=== PATIENT | female | born 1990 | race Hispanic/Latino ===

== ENCOUNTER 2016-09-17 16:53 | Emergency (ER) | payer OTHER ==
[2016-09-17 17:16] VITALS: BP 137/85
[2016-09-17 20:23] LABS: Basophils % (Auto) 0.4 % (0.0-1.8); Eosinophils % (Auto) 1.5 % (0.0-4.3); Hematocrit 40.8 % (30.3-42.9); Hemoglobin 14.2 gm/dl (10.1-14.3); Mean Corpuscular HGB Conc 35 % (30-34); Mean Corpuscular Hemoglobin 29 pg (28-32); Mean Corpuscular Volume 83 fl (79-97); Platelet Count 234 K/mm3 (140-440); Red Blood Count 4.89 M/mm3 (3.65-5.03); Red Cell Distribution Width 13.5 % (13.2-15.2); White Blood Count 7.3 K/mm3 (4.5-11.0)
[2016-09-17 20:44] LABS: Alanine Aminotransferase 31 units/L (7-56); Albumin 4.8 g/dL (3.9-5); Albumin/Globulin Ratio 1.5 %; Alkaline Phosphatase 55 units/L (35-129); Anion Gap 20 mmol/L; BUN/Creatinine Ratio 21.66; Bilirubin,Total 0.6 mg/dL (0.1-1.2); Blood Urea Nitrogen 13 mg/dL (7-17); Calcium 9.8 mg/dL (8.4-10.2); Carbon Dioxide 23 mmol/L (22-30); Chloride 101.5 mmol/L (98-107); Glucose 85 mg/dL (65-100); Lipase 33 units/L (13-60); Potassium 3.8 mmol/L (3.6-5.0); Sodium 141 mmol/L (137-145)
--- NOTE | 2016-09-17 20:49 | Emergency Department Report ---
<CHRIS SWENSON - Last Filed: 09/17/16 20:45> ED N/V/D HPI - General Chief complaint: Nausea/Vomiting/Diarrhea Stated complaint: BACK PAIN/VOMITING/DIARRHEA/COUGH/SWEATS Time Seen by Provider: 09/17/16 19:34 Source: patient Mode of arrival: Ambulatory Limitations: No Limitations - History of Present Illness Initial comments: complaining nausea vomiting and diarrhea for the past 48 hours. Patient denies dysuria, vaginal discharge, or flank pain. Patient also states that about a week ago she developed a cough with productive sputum. She feels this is unrelated to the nausea vomiting diarrhea and abdominal cramping she's been having for the past 24 hours. Patient denies any sick contacts. MD complaint: nausea, vomiting, diarrhea, abdominal pain Associated Abdominal Pain: Yes (crampy) Location: diffuse Quality: cramping Consistency: intermittent - Related Data Previous Rx's Medication Instructions Recorded Last Taken Type Cephalexin [Keflex] 500 mg PO Q12HR #20 cap 01/14/16 Unknown Rx Ibuprofen [Motrin 800 MG tab] 800 mg PO Q8HR PRN #30 tablet 01/14/16 Unknown Rx Sulfamethoxazole/Trimethoprim 1 each PO BID #20 tablet 01/14/16 Unknown Rx [Bactrim DS TAB] Promethazine [Phenergan TAB] 25 mg PO Q6HR PRN #20 tab 09/17/16 Unknown Rx Allergies Allergy/AdvReac Type Severity Reaction Status Date / Time seafood Allergy Swelling Uncoded 01/14/16 12:01 ED Review of Systems ROS: Stated complaint: BACK PAIN/VOMITING/DIARRHEA/COUGH/SWEATS Other details as noted in HPI Constitutional: chills, fever, malaise Eyes: denies: eye pain, eye discharge, vision change ENT: denies: ear pain, throat pain Respiratory: cough. denies: shortness of breath, SOB with exertion Cardiovascular: denies: chest pain, palpitations, dyspnea on exertion Gastrointestinal: abdominal pain, nausea, vomiting, diarrhea. denies: constipation Musculoskeletal: myalgia Skin: denies: rash, lesions Neurological: headache ED Past Medical Hx - Past Medical History Previous Medical History?: No Hx Hypertension: No Hx Congestive Heart Failure: No Hx Diabetes: No Hx Deep Vein Thrombosis: No Hx Renal Disease: No Hx Sickle Cell Disease: No Hx Seizures: No Hx Asthma: No Hx COPD: No Hx HIV: No - Surgical History Past Surgical History?: Yes Additional Surgical History: pelvis 07/27 - Social History Smoking Status: Never Smoker Substance Use Type: None - Medications Home Medications: Home Medications Medication Instructions Recorded Confirmed Last Taken Type Cephalexin [Keflex] 500 mg PO Q12HR #20 cap 01/14/16 Unknown Rx Ibuprofen [Motrin 800 MG tab] 800 mg PO Q8HR PRN #30 tablet 01/14/16 Unknown Rx Sulfamethoxazole/Trimethoprim 1 each PO BID #20 tablet 01/14/16 Unknown Rx [Bactrim DS TAB] Promethazine [Phenergan TAB] 25 mg PO Q6HR PRN #20 tab 09/17/16 Unknown Rx ED Physical Exam - General Limitations: No Limitations General appearance: alert, in no apparent distress - Head Head exam: Present: atraumatic, normocephalic - Eye Eye exam: Present: PERRL, EOMI - ENT ENT exam: Present: mucous membranes moist - Neck Neck exam: Present: normal inspection - Respiratory Respiratory exam: Present: normal lung sounds bilaterally. Absent: respiratory distress, wheezes, rales, rhonchi, stridor - Cardiovascular Cardiovascular Exam: Present: regular rate - GI/Abdominal GI/Abdominal exam: Present: soft, tenderness (mild diffuse), normal bowel sounds. Absent: distended, guarding, rebound, rigid, hyperactive bowel sounds, hypoactive bowel sounds, organomegaly, mass - Neurological Exam Neurological exam: Present: alert, oriented X3 - Skin Skin exam: Present: warm, dry, intact, normal color, rash. Absent: cyanosis, diaphoretic, pallor ED Course Vital Signs 09/17/16 17:14 Temperature 97.9 F Pulse Rate 84 Respiratory 16 Rate Blood Pressure 137/85 O2 Sat by Pulse 99 Oximetry - Reevaluation(s) Reevaluation #1: 09/17/16 20:55 Is resting comfortably at this time. Nontoxic, normotensive normal cardiac area still awaiting labs and imaging patient care being handed off to LOWELL Boone at this time. Prescription for Phenergan already printed and discharge instructions for nausea vomiting diarrhea entered. ED Medical Decision Making - Lab Data Result diagrams: 09/17/16 20:11 09/17/16 20:11 Critical care attestation.: If time is entered above; I have spent that time in minutes in the direct care of this critically ill patient, excluding procedure time. ED Disposition Clinical Impression: Nausea & vomiting, Diarrhea Is pt being admited?: No Does the pt Need Aspirin: No Instructions: Acute Nausea and Vomiting (ED) Prescriptions: Promethazine [Phenergan TAB] 25 mg PO Q6HR PRN #20 tab PRN Reason: Nausea Referrals: PRIMARY CARE, [Primary Care Provider] - 3-5 Days JESSA GODINEZ MD [Staff Physician] - 3-5 Days Forms: Work/School Release Form(ED) <RAHEL MENDEZ - Last Filed: 09/18/16 00:49> ED Medical Decision Making - Lab Data Result diagrams: 09/17/16 20:11 09/17/16 20:11 - Radiology Data Radiology results: image reviewed FINAL REPORT EXAM: XR CHEST 1V AP HISTORY: fever TECHNIQUE: Single frontal view of the chest PRIORS: None FINDINGS: Lungs are clear. Heart size is normal. Normal pulmonary vasculature. No effusion or pneumothorax. IMPRESSION: 1. No acute finding. Transcribed By: RADHA Dictated By: KIARRA MÉNDEZ MD Electronically Authenticated By: KIARRA MÉNDEZ MD Signed Date/Time: 09/18/16131 FINAL REPORT EXAM: XR ABDOMEN 1V AP HISTORY: abd pain TECHNIQUE: 1 view of the abdomen PRIORS: None FINDINGS: Normal bowel gas pattern. No suspicious calcifications. No indirect evidence of free air. No bowel obstruction. Orthopedic screws traverse the left SI joint and left medial acetabulum. IMPRESSION: 1. No acute finding. Transcribed By: RADHA Dictated By: KIARRA MÉNDEZ MD Electronically Authenticated By: KIARRA MÉNDEZ MD Signed Date/Time: 09/18/16 013 - Medical Decision Making Review of x-rays are all within normal limits. Patient felt a little bit better with Zofran and ordered. Patient with discharge and Phenergan by LOWELL Mendoza. Discussed with patient to drink plenty of fluids she's able to take antidiarrhea medication. I'll up with her primary care provider.
[2016-09-17] MEDS ORDERED: ZOFRAN IM ONE (22:17)
[2016-09-17 22:48] LABS: Bilirubin,Urine NEG (Negative); Blood,Urine NEG (Negative); Ketones,Urine TR mg/dL (Negative); Leukocyte Esterase,Urine NEG (Negative); Mucus,Urine 3+ /HPF; Nitrite,Urine NEG (Negative); Protein,Urine <15 mg/dL mg/dL (Negative); Urobilinogen,Urine < 2.0 mg/dL (<2.0)
--- NOTE | 2016-09-18 00:34 | XRay Report ---
FINAL REPORT EXAM: XR ABDOMEN 1V AP HISTORY: abd pain TECHNIQUE: 1 view of the abdomen PRIORS: None FINDINGS: Normal bowel gas pattern. No suspicious calcifications. No indirect evidence of free air. No bowel obstruction. Orthopedic screws traverse the left SI joint and left medial acetabulum. IMPRESSION: 1. No acute finding.
--- NOTE | 2016-09-18 00:35 | XRay Report ---
FINAL REPORT EXAM: XR CHEST 1V AP HISTORY: fever TECHNIQUE: Single frontal view of the chest PRIORS: None FINDINGS: Lungs are clear. Heart size is normal. Normal pulmonary vasculature. No effusion or pneumothorax. IMPRESSION: 1. No acute finding.
== END 2016-09-18 00:55 | disposition home or self-care (01) ==
LOC: ED 16:53
DX: R11.2 Nausea with vomiting, unspecified (principal); R19.7 Diarrhea, unspecified; R10.84 Generalized abdominal pain; Z91.013 Allergy to seafood
CPT/HCPCS: 36415; 71010; 74000; 80053; 81001; 81025; 83690; 85025; 96372; 99284; J2405

== ENCOUNTER 2017-05-15 13:29 | Emergency (ER) | payer MEDICAID, OTHER ==
[2017-05-15 14:34] VITALS: BP 118/71
[2017-05-15 16:11] LABS: Bilirubin,Urine NEG (Negative); Blood,Urine NEG (Negative); Ketones,Urine TR mg/dL (Negative); Leukocyte Esterase,Urine NEG (Negative); Mucus,Urine 2+ /HPF; Nitrite,Urine NEG (Negative); Protein,Urine <15 mg/dL mg/dL (Negative); Urobilinogen,Urine < 2.0 mg/dL (<2.0)
== END 2017-05-15 21:50 | disposition left against medical advice (07) ==
LOC: ED 13:29
DX: O26.891 Other specified pregnancy related conditions, first trimester (principal); R10.2 Pelvic and perineal pain; Z53.21 Procedure and treatment not carried out due to patient leaving prior to being seen by health care provider
CPT/HCPCS: 36415; 81001; 84702

== ENCOUNTER 2017-08-22 18:20 | Outpatient (CLI) | payer MEDICAID ==
[2017-08-22 19:08] VITALS: BP 125/57
[2017-08-22] MEDS ORDERED: LACTATED RINGERS 500 ML IV ONE (20:30)
--- NOTE | 2017-08-22 22:37 | Ultrasound Report ---
FINAL REPORT PROCEDURE: US OB > = 14 WEEKS FETUS TECHNIQUE: Real-time transabdominal sonography of the uterus, placenta, amniotic fluid, adnexa, and fetus was performed with image documentation. Detailed anatomic examination was performed. Measurements were obtained to determine age/size. M-mode Doppler was used to document heartbeat. CPT 56034 HISTORY: TACHYCARDIA COMPARISON: No prior studies are available for comparison. FINDINGS: There is a single living intrauterine gestation currently visualized in the transverse presentation head on the maternal left with a heart rate of 153 beats per minute. Subjectively the amount of amniotic fluid appears normal. Placenta is located posterior and is grade 0. No evidence of placenta abruption. Cervix length 4.6 centimeter. No evidence of placenta previa. Three-vessel cord visualized and confirmed with visualization of 2 arcuate arteries at the level of the urinary bladder. spine is unremarkable. Urinary bladder and stomach are visualized. Posterior fossa the brain, thalamus lateral ventricles and cavum septum pellucidum visualized. Kidneys are unremarkable. Facial profile and facial features were not demonstrated. Extremities were not studied in detail. MEASUREMENTS: BPD: 5.5 centimeter equaled 22 week 5 days HC: 20.7 centimeter equals 22 weeks 6 days AC: 18.6 centimeter equaled 23 week 3 days FL: 3.9 centimeter equaled 22 week 3 days Mean Gestational Age (composite criteria): 22 weeks 6 days Estimated Weight: 551 grams +/-80 2 grams equals 1 pound 3 ounces +/-3 ounces.. Interval growth: No prior studies.. Estimated date confinement by today's study 12/20/2017 +/-2 weeks. IMPRESSION: Single living intrauterine gestation visualized in the transverse presentation head on the maternal left. heart rate 153 beats per minute. Amount of amniotic fluid appears normal. No evidence of placenta abruption. No abnormalities are demonstrated. Facial features and extremities were not studied in detail. Average sonographic age by today's study is 22 weeks 6 days[address] This [address] the EDC 12/30/2017 +/-2 weeks per
== END 2017-08-22 21:47 | disposition home or self-care (01) ==
LOC: TRG 18:20
PROVIDERS: ATTEND Obstetrics & Gynecology
DX: O32.2XX0 Maternal care for transverse and oblique lie, not applicable or unspecified (principal); O47.02 False labor before 37 completed weeks of gestation, second trimester; Z3A.22 22 weeks gestation of pregnancy
CPT/HCPCS: 76805

== ENCOUNTER 2017-09-13 16:04 | Outpatient (CLI) | payer MEDICAID ==
[2017-09-13 17:27] LABS: Bacteria,Urine 1+ /HPF (Negative); Bilirubin,Urine NEG (Negative); Blood,Urine NEG (Negative); Color,Urine Yellow (Yellow); Mucus,Urine FEW /HPF; Nitrite,Urine NEG (Negative); Protein,Urine <15 mg/dL mg/dL (Negative); Urobilinogen,Urine < 2.0 mg/dL (<2.0)
[2017-09-13] MEDS ORDERED: LACTATED RINGERS 1,000 ML IV SCH (18:00)
--- NOTE | 2017-09-13 19:23 | Ultrasound Report ---
FINAL REPORT EXAM: US OB LIMITED HISTORY: r/o abruption . LMP 03/16/2017 with estimated age 25 weeks 6 days and EDC 12/21/2017 TECHNIQUE: Ultrasound of the pelvis using transabdominal imaging PRIORS: None. FINDINGS: Uterus: Uterus is enlarged in size and normal and homogeneous in echogenicity without focal fibroid formation. There is a single early viable intrauterine gestation noted. Intrauterine gestation: There is a single intrauterine viable gestation. heart rate is monitored at 152 BPM using M-mode doppler. The placenta is located along the posterior left side of the uterus and is grade 1. There is no evidence for placenta abruption. The fetus is breech in position. Other: There is no evidence for solid adnexal mass is seen. There is no free fluid in the cul-de-sac. IMPRESSION: Single intrauterine viable with no evidence for placental abruption. Fetus is breech in position.
== END 2017-09-13 19:25 | disposition home or self-care (01) ==
LOC: TRG 16:04
PROVIDERS: ATTEND Obstetrics & Gynecology
DX: O32.1XX0 Maternal care for breech presentation, not applicable or unspecified (principal); O47.03 False labor before 37 completed weeks of gestation, third trimester; Z3A.29 29 weeks gestation of pregnancy
CPT/HCPCS: 59025; 76815; 81001; J7120

== ENCOUNTER 2017-09-28 11:25 | Inpatient (IN) | payer MEDICAID ==
--- NOTE | 2017-09-28 12:35 | History and Physical Report ---
History of Present Illness Date of examination: 09/28/17 Chief complaint: Fever and chills History of present illness: 27-year-old at 28 weeks (LUIS MANUEL 12/21/17) presents with flulike symptoms, she is a [facility] patient. Essential history is patient with onset of headache last Tuesday for which she took Tylenol. Yesterday however, she started to have fever and chills associated with flank pain and some mild bilateral inguinal pain. No cough, no dysuria or frequency, no diarrhea symptoms, no vaginal discharge or loss of fluid. She does report that her children have been sick for the past week. In triage, her temp is within normal alternatives her skin feels clammy. She does have tachycardia and she also has tachycardia. Patient gives and oral history of tachycardia, has not had any workup. She did have a growth scan on 08/22/2017 here in-hospital Impression is single living intrauterine gestation visualized in the transverse position. heart rate 153. Amount of amniotic fluid appears normal. No evidence of placental abruption. No abnormalities are demonstrated. Facial features and extremities are not studied in detail. Average sonographic age is 22 weeks 6 days [address] her EDC at 12/30/2017 Note the patient gives an oral history of receiving the flu shot this season last year. 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 denies: Lives alone, lives with family, smoking, alcohol abuse, IV drug use - Obstetrical History Expected Date of Delivery: 12/21/17 Actual Gestation: 28 Week(s) 0 Day(s) : 4 Para: 2 Medications and Allergies Allergies Allergy/AdvReac Type Severity Reaction Status Date / Time seafood Allergy Swelling Uncoded 01/14/16 12:01 Home Medications Medication Instructions Recorded Confirmed Last Taken Type Cephalexin [Keflex] 500 mg PO Q12HR #20 cap 01/14/16 Unknown Rx Ibuprofen [Motrin 800 MG tab] 800 mg PO Q8HR PRN #30 tablet 01/14/16 Unknown Rx Sulfamethoxazole/Trimethoprim 1 each PO BID #20 tablet 01/14/16 Unknown Rx [Bactrim DS TAB] Promethazine [Phenergan TAB] 25 mg PO Q6HR PRN #20 tab 09/17/16 Unknown Rx Active Meds: Active Medications Lactated Ringer's (Lactated Ringers) 500 mls @ 999 mls/hr IV BOLUS ONE Stop: 09/28/17 12:52 Lactated Ringer's (Lactated Ringers) 1,000 mls @ 125 mls/hr IV DIRECT DEVIN Review of Systems Constitutional: fever, chills, sweats, fatigue, malaise Eyes: no blurred vision, no diplopia, no blind spots Ears, nose, mouth and throat: headache, no sinus pressure, no sinus pain Cardiovascular: no chest pain, no orthopnea, no lightheadedness, no shortness of breath, no dyspnea on exertion, no paroxysmal nocturnal dyspnea, no high blood pressure Respiratory: no cough, no cough with sputum, no shortness of breath, no dyspnea on exertion, no respiratory infections Gastrointestinal: no abdominal pain, no nausea, no vomiting, no diarrhea, no heartburn Genitourinary: no vaginal bleeding, no leakage of fluid, no dysuria, no contractions - Vital Signs Vital signs: Vital Signs Temp Pulse 99.8 F H 124 H 09/28/17 12:05 09/28/17 12:05 Temp Pulse Resp BP Pulse Ox 99.8 F H 110 H 129/73 94 09/28/17 12:05 09/28/17 12:33 09/28/17 12:15 09/28/17 12:33 - Physical Exam Cardiovascular: Other (maternal tachycardia) Lungs: Positive: Clear to auscultation Abdomen: Positive: normal appearance, soft. Negative: distention, tenderness, guarding, rigidity Genitourinary (Female): Positive: normal external genitalia Uterus: Positive: enlarged. Negative: tender Extremities: Positive: normal Results All other labs normal. Assessment and Plan A: 27-year-old at 28 weeks presents with flulike symptoms -Cat 2 tracing with tachycardia Issues -Oral hx of elevated temp at home -Oral hx of tachycardia x ~ 1 month -s/p Growth on 08/22/17 (LUIS MANUEL 12/30/17) P: -Admit with contact precautions -CBC, Urine culture and UDS -BMP, TSH -Start Tamiflu course -Growth and BPP -MFM consult for oral hx of tachycardia - Patient Problems (1) 28 weeks gestation of Current Visit: Yes Status: Acute (2) Flu-like symptoms Current Visit: Yes Status: Acute (3) tachycardia Current Visit: Yes Status: Acute
[2017-09-28] MEDS ORDERED: LACTATED RINGERS 1,000 ML ONE (12:42)
[2017-09-28] MEDS ORDERED: LACTATED RINGERS 500 ML IV ONE (12:42)
[2017-09-28] MEDS: LACTATED RINGERS 1,000 ML IV SCH ×2 (12:50→21:06)
[2017-09-28] MEDS ORDERED: ZOFRAN IV PRN (12:54)
[2017-09-28] MEDS ORDERED: BENADRYL PO PRN (12:54)
[2017-09-28] MEDS ORDERED: COLACE PO PRN (12:54)
[2017-09-28 13:24] LABS: Amphetamine Screen,Urine PRESUMPTIVE NEGATIVE; Benzodiazepines Screen,Urine PRESUMPTIVE NEGATIVE; Cannabinoid Screen,Urine PRESUMPTIVE NEGATIVE; Cocaine Screen,Urine PRESUMPTIVE NEGATIVE; Methadone Screen,Urine PRESUMPTIVE NEGATIVE; Opiate Screen,Urine PRESUMPTIVE NEGATIVE
[2017-09-28 13:30] LABS: Basophils % (Auto) 0.4 % (0.0-1.8); Eosinophils % (Auto) 0.2 % (0.0-4.3); Hematocrit 30.2 % (30.3-42.9); Hemoglobin 10.4 gm/dl (10.1-14.3); Lymphocytes # (Auto) 0.7 K/mm3 (1.2-5.4); Lymphocytes % (Auto) 16.3 % (13.4-35.0); Mean Corpuscular HGB Conc 34 % (30-34); Mean Corpuscular Hemoglobin 29 pg (28-32); Mean Corpuscular Volume 84 fl (79-97); Monocytes # (Auto) 0.3 K/mm3 (0.0-0.8); Monocytes % (Auto) 6.8 % (0.0-7.3); Platelet Count 167 K/mm3 (140-440); Red Blood Count 3.58 M/mm3 (3.65-5.03); Red Cell Distribution Width 13.9 % (13.2-15.2)
[2017-09-28 14:04] LABS: Alanine Aminotransferase 52 units/L (7-56); Albumin 3.4 g/dL (3.9-5); BUN/Creatinine Ratio 17; Blood Urea Nitrogen 5 mg/dL (7-17); Calcium 8.4 mg/dL (8.4-10.2); Hemolysis Index 59
--- NOTE | 2017-09-28 14:37 | Ultrasound Report ---
BIOPHYSICAL PROFILE: INDICATION: well being, flulike symptoms, flank pain. COMPARISON: None similar. TECHNIQUE: Transabdominal ultrasound with Doppler interrogation. 2 - breathing movements 2 - movements 2 - posture and tone 2 - Qualitative amniotic fluid volume 8 - TOTAL SCORE OF POSSIBLE 8 Heart Rate (bpm) 168 CONCLUSION: Findings, as above.
--- NOTE | 2017-09-28 14:54 | Ultrasound Report ---
OB ULTRASOUND GREATER THAN 14 WEEKS INDICATION: Evaluate growth and anatomy. Flank pain, flulike symptoms. COMPARISON: 09/13/2017 TECHNIQUE: Transabdominal grayscale ultrasound with Doppler interrogation. Gestation: [place] Position: Breech Amniotic Fluid: WNL (7-24 cm) CHRISTIAN = 23.5 cm Placenta: Anterior, left lateral Placental Grade: I Heart Rate: 168 BPM BPD: 7.06 cm = 28 w 2 d HC: 26.01 cm = 28 w 2 d AC: 24.49 cm = 28 w 5 d FL: 5.27 cm = 28 w 0 d HC/AC Ratio: 1.06 Cephalic Index: 84.7 Estimated Weight: 1227 grams Clinical age = 28 w 0 d EDC: 12/21/2017 US Gest. Age = 28 w 2 d EDC: 12/19/2017 CONCLUSION: Single, viable intrauterine gestation with ultrasound estimated age of 28 weeks and 2 days and EDC of 12/19/2017, currently in breech lie with details, as above. Thank you for the opportunity to participate in this patient's care.
[2017-09-28] MEDS: TAMIFLU PO SCH ×2 (15:45→21:53)
[2017-09-28] MEDS: TYLENOL PO PRN (16:29)
--- NOTE | 2017-09-28 18:25 | Event Note ---
Date: 09/28/17 Patient still with tachycardia. TSH and WBC are normal, she has not spiked a temp. AST elevated w/ normal ALT. Plan is Acute hepatitis profile and M consultation for tachycardia
[2017-09-28 18:54] LABS: Hepatitis A Antibody IgM Non-Reactive (NonReactive); Hepatitis B Core IgM Non-Reactive (NonReactive); Hepatitis B Surface Antigen Non-Reactive (Negative); Hepatitis C Virus Antibody Non-Reactive (NonReactive)
--- NOTE | 2017-09-29 08:31 | Progress Note ---
Assessment and Plan - Patient Problems (1) 28 weeks gestation of Onset Date: 09/29/17 Current Visit: Yes Status: Acute Plan to address problem: A: IUP @ 28 1/7 weeks Flu-like symptoms - presently on Tamiflu Tachycardia Elevated LFT's P: Continue present management Awaiting APA consultation Repeat LFT's (2) tachycardia Onset Date: 09/29/17 Current Visit: Yes Status: Acute (3) Flu-like symptoms Onset Date: 09/29/17 Current Visit: Yes Status: Acute Subjective - Subjective Date of service: 09/29/17 Principal diagnosis: IUP @ 28 1/7 weeks; Flu-like symptoms Interval history: Pt states she is feeling a little better, denies headaches , blurred vision, epigastric pain, contractions or bleeding. Her head still feels heavy. + FM Patient reports: movement normal, no new complaints, no loss of fluid, no vaginal bleeding, no contractions Objective - Vital Signs Vital Signs: Vital Signs - 12hr 09/28/17 09/28/17 09/28/17 20:34 20:39 20:44 Temperature Pulse Rate 104 H 99 H 98 H Respiratory Rate Blood Pressure Blood Pressure [Left] O2 Sat by Pulse 96 96 95 Oximetry 09/28/17 09/28/17 09/28/17 20:49 20:54 20:55 Temperature Pulse Rate 98 H 92 H 95 H Respiratory Rate Blood Pressure Blood Pressure [Left] O2 Sat by Pulse 96 95 94 Oximetry 09/28/17 09/28/17 09/28/17 20:59 21:03 21:04 Temperature Pulse Rate 97 H 95 H 103 H Respiratory Rate Blood Pressure Blood Pressure [Left] O2 Sat by Pulse 95 94 95 Oximetry 09/28/17 09/28/17 09/28/17 21:09 21:10 21:22 Temperature Pulse Rate 104 H 98 H 93 H Respiratory Rate Blood Pressure Blood Pressure [Left] O2 Sat by Pulse 95 94 97 Oximetry 09/28/17 09/28/17 09/28/17 21:27 21:32 21:37 Temperature Pulse Rate 96 H 94 H 91 H Respiratory Rate Blood Pressure Blood Pressure [Left] O2 Sat by Pulse 97 96 95 Oximetry 09/28/17 09/28/17 09/28/17 21:42 21:47 21:52 Temperature Pulse Rate 88 90 90 Respiratory Rate Blood Pressure Blood Pressure [Left] O2 Sat by Pulse 95 96 96 Oximetry 09/28/17 09/28/17 09/28/17 21:56 21:57 22:02 Temperature Pulse Rate 88 84 90 Respiratory Rate Blood Pressure 130/60 Blood Pressure [Left] O2 Sat by Pulse 94 97 96 Oximetry 09/28/17 09/28/17 09/28/17 22:04 22:07 22:09 Temperature Pulse Rate 90 88 95 H Respiratory Rate Blood Pressure Blood Pressure [Left] O2 Sat by Pulse 94 95 94 Oximetry 09/28/17 09/28/17 09/28/17 22:12 22:17 22:20 Temperature Pulse Rate 88 91 H 93 H Respiratory Rate Blood Pressure Blood Pressure [Left] O2 Sat by Pulse 95 96 94 Oximetry 09/28/17 09/28/17 09/28/17 22:22 22:27 22:32 Temperature Pulse Rate 88 91 H 88 Respiratory Rate Blood Pressure Blood Pressure [Left] O2 Sat by Pulse 95 94 94 Oximetry 09/28/17 09/28/17 09/28/17 22:37 22:38 22:42 Temperature Pulse Rate 88 89 89 Respiratory Rate Blood Pressure Blood Pressure [Left] O2 Sat by Pulse 96 94 95 Oximetry 09/28/17 09/28/17 09/28/17 22:44 22:47 22:52 Temperature Pulse Rate 89 89 90 Respiratory Rate Blood Pressure Blood Pressure [Left] O2 Sat by Pulse 94 94 94 Oximetry 09/28/17 09/28/17 09/28/17 22:57 22:59 23:02 Temperature Pulse Rate 91 H 91 H 91 H Respiratory Rate Blood Pressure Blood Pressure [Left] O2 Sat by Pulse 94 94 94 Oximetry 09/28/17 09/28/17 09/28/17 23:07 23:10 23:12 Temperature Pulse Rate 92 H 91 H 86 Respiratory Rate Blood Pressure Blood Pressure [Left] O2 Sat by Pulse 94 94 94 Oximetry 09/28/17 09/28/17 09/28/17 23:17 23:22 23:25 Temperature Pulse Rate 90 90 88 Respiratory Rate Blood Pressure Blood Pressure [Left] O2 Sat by Pulse 94 93 94 Oximetry 09/28/17 09/28/17 09/28/17 23:27 23:31 23:32 Temperature Pulse Rate 90 90 91 H Respiratory Rate Blood Pressure Blood Pressure [Left] O2 Sat by Pulse 93 94 93 Oximetry 09/28/17 09/28/17 09/28/17 23:37 23:42 23:47 Temperature Pulse Rate 90 92 H 87 Respiratory Rate Blood Pressure Blood Pressure [Left] O2 Sat by Pulse 94 96 95 Oximetry 09/28/17 09/28/17 09/28/17 23:52 23:53 23:57 Temperature Pulse Rate 89 94 H 88 Respiratory Rate Blood Pressure Blood Pressure [Left] O2 Sat by Pulse 96 94 96 Oximetry 09/28/17 09/29/17 09/29/17 23:59 00:02 00:05 Temperature Pulse Rate 88 84 99 H Respiratory Rate Blood Pressure Blood Pressure [Left] O2 Sat by Pulse 94 96 94 Oximetry 09/29/17 09/29/17 09/29/17 00:07 00:12 00:14 Temperature Pulse Rate 89 92 H 68 Respiratory Rate Blood Pressure Blood Pressure [Left] O2 Sat by Pulse 96 95 94 Oximetry 09/29/17 09/29/17 09/29/17 00:17 00:19 00:22 Temperature Pulse Rate 89 89 91 H Respiratory Rate Blood Pressure 96/61 Blood Pressure [Left] O2 Sat by Pulse 95 97 Oximetry 09/29/17 09/29/17 09/29/17 00:26 00:27 00:32 Temperature Pulse Rate 88 91 H 81 Respiratory Rate Blood Pressure Blood Pressure [Left] O2 Sat by Pulse 93 96 95 Oximetry 09/29/17 09/29/17 09/29/17 00:37 00:42 00:43 Temperature 98.8 F Pulse Rate 81 82 89 Respiratory 18 Rate Blood Pressure Blood Pressure 96/61 [Left] O2 Sat by Pulse 96 95 96 Oximetry 09/29/17 09/29/17 09/29/17 00:47 00:52 00:57 Temperature Pulse Rate 85 86 86 Respiratory Rate Blood Pressure Blood Pressure [Left] O2 Sat by Pulse 96 96 96 Oximetry 09/29/17 09/29/17 09/29/17 01:02 01:07 01:12 Temperature Pulse Rate 86 88 87 Respiratory Rate Blood Pressure Blood Pressure [Left] O2 Sat by Pulse 96 97 96 Oximetry 09/29/17 09/29/17 09/29/17 01:17 01:22 01:27 Temperature Pulse Rate 90 86 88 Respiratory Rate Blood Pressure Blood Pressure [Left] O2 Sat by Pulse 97 97 97 Oximetry 09/29/17 09/29/17 09/29/17 01:32 01:37 01:42 Temperature Pulse Rate 90 93 H 91 H Respiratory Rate Blood Pressure Blood Pressure [Left] O2 Sat by Pulse 94 94 94 Oximetry 09/29/17 09/29/17 09/29/17 01:43 01:47 01:50 Temperature Pulse Rate 92 H 94 H 94 H Respiratory Rate Blood Pressure Blood Pressure [Left] O2 Sat by Pulse 94 94 94 Oximetry 09/29/17 09/29/17 09/29/17 01:52 01:55 01:57 Temperature Pulse Rate 91 H 91 H 92 H Respiratory Rate Blood Pressure Blood Pressure [Left] O2 Sat by Pulse 94 94 94 Oximetry 09/29/17 09/29/17 09/29/17 02:01 02:02 02:07 Temperature Pulse Rate 94 H 93 H 90 Respiratory Rate Blood Pressure Blood Pressure [Left] O2 Sat by Pulse 94 93 91 Oximetry 09/29/17 09/29/17 09/29/17 02:11 02:12 02:16 Temperature Pulse Rate 92 H 90 95 H Respiratory Rate Blood Pressure Blood Pressure [Left] O2 Sat by Pulse 94 93 94 Oximetry 09/29/17 09/29/17 09/29/17 02:17 02:22 02:24 Temperature Pulse Rate 96 H 92 H 91 H Respiratory Rate Blood Pressure Blood Pressure [Left] O2 Sat by Pulse 93 95 94 Oximetry 09/29/17 09/29/17 09/29/17 02:27 02:29 02:32 Temperature Pulse Rate 93 H 95 H 96 H Respiratory Rate Blood Pressure Blood Pressure [Left] O2 Sat by Pulse 94 94 95 Oximetry 09/29/17 09/29/17 09/29/17 02:35 02:37 02:41 Temperature Pulse Rate 96 H 92 H 93 H Respiratory Rate Blood Pressure Blood Pressure [Left] O2 Sat by Pulse 94 95 94 Oximetry 09/29/17 09/29/17 09/29/17 02:42 02:47 02:48 Temperature Pulse Rate 95 H 95 H 96 H Respiratory Rate Blood Pressure Blood Pressure [Left] O2 Sat by Pulse 95 95 94 Oximetry 09/29/17 09/29/17 09/29/17 02:52 02:54 02:57 Temperature Pulse Rate 97 H 95 H 97 H Respiratory Rate Blood Pressure Blood Pressure [Left] O2 Sat by Pulse 95 94 95 Oximetry 09/29/17 09/29/17 09/29/17 03:01 03:02 03:06 Temperature Pulse Rate 94 H 96 H 91 H Respiratory Rate Blood Pressure Blood Pressure [Left] O2 Sat by Pulse 94 94 94 Oximetry 09/29/17 09/29/17 09/29/17 03:07 03:12 03:17 Temperature Pulse Rate 92 H 93 H 94 H Respiratory Rate Blood Pressure Blood Pressure [Left] O2 Sat by Pulse 94 94 94 Oximetry 09/29/17 09/29/17 09/29/17 03:18 03:22 03:24 Temperature Pulse Rate 91 H 96 H 96 H Respiratory Rate Blood Pressure Blood Pressure [Left] O2 Sat by Pulse 94 94 94 Oximetry 09/29/17 09/29/17 09/29/17 03:27 03:32 03:37 Temperature Pulse Rate 101 H 94 H 95 H Respiratory Rate Blood Pressure Blood Pressure [Left] O2 Sat by Pulse 95 97 98 Oximetry 09/29/17 09/29/17 09/29/17 03:42 03:47 03:52 Temperature Pulse Rate 95 H 94 H 94 H Respiratory Rate Blood Pressure Blood Pressure [Left] O2 Sat by Pulse 98 98 97 Oximetry 09/29/17 09/29/17 09/29/17 03:57 04:02 04:07 Temperature Pulse Rate 95 H 93 H 91 H Respiratory Rate Blood Pressure Blood Pressure [Left] O2 Sat by Pulse 97 96 96 Oximetry 09/29/17 09/29/17 09/29/17 04:12 04:17 04:19 Temperature Pulse Rate 93 H 97 H 90 Respiratory Rate Blood Pressure 113/63 Blood Pressure [Left] O2 Sat by Pulse 96 96 Oximetry 09/29/17 09/29/17 09/29/17 04:43 07:55 07:58 Temperature 98.8 F 99.5 F Pulse Rate 93 H 94 H 91 H Respiratory 18 18 Rate Blood Pressure 116/58 Blood Pressure 113/63 116/58 [Left] O2 Sat by Pulse 97 97 97 Oximetry 09/29/17 09/29/17 08:03 08:08 Temperature Pulse Rate 97 H 97 H Respiratory Rate Blood Pressure Blood Pressure [Left] O2 Sat by Pulse 96 98 Oximetry - Exam Abdomen: Present: normal appearance, soft FHR: category 2 FHR comments: tachycardia Uterine Contraction Monitor Mode: External Uterine Contraction Pattern: Absent - Labs Labs: Abnormal Labs 09/28/17 09/28/17 12:56 13:16 WBC 4.3 L RBC 3.58 L Hct 30.2 L Lymph # 0.7 L Seg Neutrophils % 76.3 H Carbon Dioxide 19 L BUN 5 L Creatinine 0.3 L AST 267 H Albumin 3.4 L Laboratory Results - last 24 hr 09/28/17 09/28/17 09/28/17 12:40 12:56 12:56 WBC 4.3 L RBC 3.58 L Hgb 10.4 Hct 30.2 L MCV 84 MCH 29 MCHC 34 RDW 13.9 Plt Count 167 Lymph % (Auto) 16.3 [place] % (Auto) 6.8 Eos % (Auto) 0.2 Baso % (Auto) 0.4 Lymph # 0.7 L [place] # 0.3 Eos # 0.0 Baso # 0.0 Seg Neutrophils % 76.3 H Seg Neutrophils # 3.3 Sodium Potassium Chloride Carbon Dioxide Anion Gap BUN Creatinine Estimated GFR BUN/Creatinine Ratio Glucose Calcium Total Bilirubin AST ALT Alkaline Phosphatase Total Protein Albumin Albumin/Globulin Ratio TSH 1.210 Urine Opiates Screen Presumptive negative Urine Methadone Screen Presumptive negative Ur Barbiturates Screen Presumptive negative Ur Phencyclidine Scrn Presumptive negative Ur Amphetamines Screen Presumptive negative U Benzodiazepines Scrn Presumptive negative Urine Cocaine Screen Presumptive negative U Marijuana (THC) Screen Presumptive negative Drugs of Abuse Note Disclamer Hepatitis A IgM Ab Hep Bs Antigen Hep B Core IgM Ab Hepatitis C Antibody Blood Type Antibody Screen 09/28/17 09/28/17 09/28/17 13:16 13:16 13:16 WBC RBC Hgb Hct MCV MCH MCHC RDW Plt Count Lymph % (Auto) [place] % (Auto) Eos % (Auto) Baso % (Auto) Lymph # [place] # Eos # Baso # Seg Neutrophils % Seg Neutrophils # Sodium 138 Potassium 4.3 Chloride 102.6 Carbon Dioxide 19 L Anion Gap 21 BUN 5 L Creatinine 0.3 L Estimated GFR > 60 BUN/Creatinine Ratio 17 Glucose 80 Calcium 8.4 Total Bilirubin 0.30 AST 267 H ALT 52 Alkaline Phosphatase 35 Total Protein 6.7 Albumin 3.4 L Albumin/Globulin Ratio 1.0 TSH Urine Opiates Screen Urine Methadone Screen Ur Barbiturates Screen Ur Phencyclidine Scrn Ur Amphetamines Screen U Benzodiazepines Scrn Urine Cocaine Screen U Marijuana (THC) Screen Drugs of Abuse Note Hepatitis A IgM Ab Non-reactive Hep Bs Antigen Non-reactive Hep B Core IgM Ab Non-reactive Hepatitis C Antibody Non-reactive Blood Type A POSITIVE Antibody Screen Negative
[2017-09-29] MEDS: TAMIFLU PO SCH ×2 (12:31→22:08)
[2017-09-29] MEDS: PRENATAL VITAMIN PO SCH (12:31)
[2017-09-29] MEDS: LACTATED RINGERS 1,000 ML IV SCH (15:21)
[2017-09-29] MEDS: TYLENOL PO PRN (17:30)
[2017-09-29 20:54] LABS: Alanine Aminotransferase 35 units/L (7-56); Albumin 3.5 g/dL (3.9-5); BUN/Creatinine Ratio 10; Blood Urea Nitrogen 4 mg/dL (7-17); Calcium 8.7 mg/dL (8.4-10.2); Hemolysis Index 2
[2017-09-30] MEDS: LACTATED RINGERS 1,000 ML IV SCH ×3 (00:54→23:08)
[2017-09-30] MEDS: TYLENOL PO PRN ×2 (08:28→23:10)
--- NOTE | 2017-09-30 09:24 | Consultation ---
History of Present Illness Reason for consult: other (27-year-old at 28.2 weeks (LUIS MANUEL 12/21/17) presented with flulike symptoms, [facility] patient. patient reported history of headache last Tuesday for which she took Tylenol with positive relief . On 09/27/13 patient reported history of fever and chills associated with flank pain and some mild bilateral inguinal pain. No cough, no dysuria or frequency, no diarrhea symptoms, no vaginal discharge or loss of fluid. She reported that her children have been sick for the past week. Note the patient gives an oral history of receiving the flu shot this season last year. In triage, her temp was within normal alternatives her skin feels clammy. It was noted maternal tachycardia and she also has tachycardia. Patient reported history of tachycardia, has not had any workup and no APA consultation requested . Today's assessment patient afebrile with stable maternal pulse . Per patient's RN flu screen was Negative Baseline FHT of 160' s with accelerations @ 170's . ) Past History Past Medical History: no pertinent history Past Surgical History: no surgical history [employer] History: denies: chlamydia, gonorrhea, hepatitis B, hepatitis C, herpes, HIV , syphilis, trichomonas - Obstetrical History : 4 Medications and Allergies Allergies Allergy/AdvReac Type Severity Reaction Status Date / Time seafood Allergy Swelling Uncoded 01/14/16 12:01 Home Medications Medication Instructions Recorded Confirmed Last Taken Type Cephalexin [Keflex] 500 mg PO Q12HR #20 cap 01/14/16 09/28/17 Unknown Rx Ibuprofen [Motrin 800 MG tab] 800 mg PO Q8HR PRN #30 tablet 01/14/16 09/28/17 Unknown Rx Sulfamethoxazole/Trimethoprim 1 each PO BID #20 tablet 01/14/16 09/28/17 Unknown Rx [Bactrim DS TAB] Promethazine [Phenergan TAB] 25 mg PO Q6HR PRN #20 tab 09/17/16 09/28/17 2 Weeks Ago Rx ~09/14/17 25 Active Meds: Active Medications Acetaminophen (Tylenol) 650 mg PO Q4H PRN PRN Reason: Pain MILD(1-3)/Fever >100.5/BONNER Last Admin: 09/30/17 08:28 Dose: 650 mg Diphenhydramine HCl (Benadryl) 25 mg PO Q6H PRN PRN Reason: Itching Docusate Sodium (Colace) 100 mg PO Q12H PRN PRN Reason: Constipation Lactated Ringer's (Lactated Ringers) 1,000 mls @ 125 mls/hr IV DIRECT [facility] Last Admin: 09/30/17 00:54 Dose: 125 mls/hr Multivitamins/Iron/Calcium ( Vitamin) 1 each PO QDAY [facility] Last Admin: 09/29/17 12:31 Dose: 1 each Ondansetron HCl (Zofran) 4 mg IV Q6H PRN PRN Reason: Nausea And Vomiting Oseltamivir Phosphate (Tamiflu) 75 mg PO BID [facility] Stop: 10/02/17 22:01 Last Admin: 09/29/17 22:08 Dose: 75 mg Review of Systems Constitutional: no fever, no night sweats Eyes: no photophobia, no other (scotoma ) Ears, nose, mouth and throat: no sore throat, no headache Cardiovascular: no chest pain, no rapid/irregular heart beat, no syncope, no shortness of breath, no high blood pressure Respiratory: no cough, no shortness of breath, no congestion, no wheezing Breasts: deferred Gastrointestinal: no abdominal pain, no vomiting, no diarrhea, no other (flank pain ) Genitourinary: no vaginal bleeding, no vaginal discharge, no leakage of fluid, no contractions Rectal Exam: deferred Musculoskeletal: no low back pain Integumentary: no rash Neurological: no vertigo Allergic/Immunologic: no wheezing - Vital Signs Vital signs: Vital Signs Temp Pulse 99.8 F H 124 H 09/28/17 12:05 09/28/17 12:05 Temp Pulse Resp BP Pulse Ox 96.9 F L 86 18 112/65 97 09/30/17 07:44 09/30/17 08:33 09/30/17 08:28 09/30/17 07:49 09/30/17 08:33 - Physical Exam Breasts: Positive: deferred Cardiovascular: Regular rate Lungs: Positive: Normal air movement Abdomen: Negative: tenderness, guarding Uterus: Positive: other (gravid). Negative: tender Extremities: Positive: normal Deep Tendon Reflex Grade: Normal +2 - Obstetrical FHR: category 1 FHR comments: heart time baseline 160's with average variability Uterine Contraction Monitor Mode: External Uterine Contraction Pattern: Absent Results Result Diagrams: 09/28/17 12:56 09/29/17 14:25 Abnormal lab results 09/29/17 09/29/17 Range/Units 14:25 14:54 BUN 4 L (7-17) mg/dL Creatinine 0.4 L (0.7-1.2) mg/dL AST 85 H 84 H (5-40) units/L Total Protein 6.0 L (6.3-8.2) g/dL Albumin 3.5 L (3.9-5) g/dL All other labs normal. Ultrasound: report reviewed ([facility] US from 09/28/17 : SIUP @ 28.0 weeks BREECH CHRISTIAN 23.5 cm GRADE I placenta AUA 28.2 weeks EFW 1227 gm BPP of 03/22 FHT 168bpm ) Assessment and Plan A: SIUP@ 28.2 weeks presented with flulike symptoms Presently on Tamiflu regimen Presently Afebrile Baseline FHT 160's Presently Cat I tracing Elevated CHRISTIAN assessment for EGA Appropriate growth assessment from [facility] Reassuring BPP from [facility] Reported Oral hx of tachycardia x ~ 1 month ( no work up reported by patient ) Elevated AST however improved from 267 to 84 Negative Hept panel Negative Urine culture TSH WNL [place] [facility] [place] was Negative Reported history of SOB ( patient did not keep appointment with cardiology ) Maternal obesity P as per Dr. 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 Head
[2017-09-30] MEDS: PRENATAL VITAMIN PO SCH (09:26)
[2017-09-30] MEDS: TAMIFLU PO SCH ×2 (09:26→23:08)
[2017-09-30 13:25] LABS: Alanine Aminotransferase 28 units/L (7-56); Albumin 3.4 g/dL (3.9-5); BUN/Creatinine Ratio 17; Blood Urea Nitrogen 5 mg/dL (7-17); Calcium 9.1 mg/dL (8.4-10.2); Hemolysis Index 60
--- NOTE | 2017-09-30 16:51 | Progress Note ---
Assessment and Plan - Patient Problems (1) 28 weeks gestation of Onset Date: 09/29/17 Current Visit: Yes Status: Acute Plan to address problem: A: IUP @ 28 2/7 weeks Flu-like symptoms - presently on Tamiflu Tachycardia Elevated LFT's - improving P: Continue present management Appreciate APA consultation TORCH titers ordered echo canceled per Dr Gallegos Will obtain a Cardiology consult (2) tachycardia Onset Date: 09/29/17 Current Visit: Yes Status: Acute (3) Flu-like symptoms Onset Date: 09/29/17 Current Visit: Yes Status: Acute Subjective - Subjective Date of service: 09/30/17 Principal diagnosis: IUP @ 28 2/7 weeks; Flu-like symptoms Interval history: Pt states she is feeling a little she is getting a sore throat, but denies headaches , blurred vision, epigastric pain, contractions or bleeding. + FM Patient reports: movement normal, no new complaints, no loss of fluid, no vaginal bleeding, no contractions Objective - Vital Signs Vital Signs: Vital Signs - 12hr 09/30/17 09/30/17 09/30/17 07:44 07:49 07:54 Temperature 96.9 F L Pulse Rate 93 H 86 95 H Respiratory 18 Rate Blood Pressure 112/65 Blood Pressure 112/65 [Left] O2 Sat by Pulse 96 96 97 Oximetry 09/30/17 09/30/17 09/30/17 07:59 08:04 08:09 Temperature Pulse Rate 88 102 H 93 H Respiratory Rate Blood Pressure Blood Pressure [Left] O2 Sat by Pulse 96 97 96 Oximetry 09/30/17 09/30/17 09/30/17 08:18 08:23 08:28 Temperature Pulse Rate 101 H 99 H 97 H Respiratory 18 Rate Blood Pressure Blood Pressure [Left] O2 Sat by Pulse 98 97 96 Oximetry 09/30/17 09/30/17 09/30/17 08:33 15:16 15:21 Temperature Pulse Rate 86 88 87 Respiratory Rate Blood Pressure Blood Pressure [Left] O2 Sat by Pulse 97 97 97 Oximetry 09/30/17 09/30/17 09/30/17 15:26 15:31 15:36 Temperature Pulse Rate 89 95 H 91 H Respiratory Rate Blood Pressure Blood Pressure [Left] O2 Sat by Pulse 96 96 95 Oximetry 09/30/17 09/30/17 09/30/17 15:41 15:44 15:46 Temperature Pulse Rate 95 H 94 H 96 H Respiratory Rate Blood Pressure Blood Pressure [Left] O2 Sat by Pulse 95 94 95 Oximetry 09/30/17 09/30/17 09/30/17 15:51 15:56 16:01 Temperature Pulse Rate 95 H 95 H 100 H Respiratory Rate Blood Pressure Blood Pressure [Left] O2 Sat by Pulse 95 96 97 Oximetry 09/30/17 09/30/17 09/30/17 16:06 16:11 16:19 Temperature Pulse Rate 94 H 98 H 91 H Respiratory Rate Blood Pressure Blood Pressure [Left] O2 Sat by Pulse 96 97 97 Oximetry 09/30/17 09/30/17 09/30/17 16:24 16:29 16:34 Temperature Pulse Rate 94 H 87 92 H Respiratory Rate Blood Pressure Blood Pressure [Left] O2 Sat by Pulse 95 96 95 Oximetry 09/30/17 09/30/17 09/30/17 16:39 16:44 16:49 Temperature Pulse Rate 86 88 92 H Respiratory Rate Blood Pressure Blood Pressure [Left] O2 Sat by Pulse 96 97 97 Oximetry - Exam Abdomen: Present: normal appearance, soft FHR: category 1 Uterine Contraction Pattern: Absent Uterine Tone Measurement Phase: Contraction - Labs Labs: Abnormal Labs 09/28/17 09/28/17 09/29/17 12:56 13:16 14:25 WBC 4.3 L RBC 3.58 L Hct 30.2 L Lymph # 0.7 L Seg Neutrophils % 76.3 H Carbon Dioxide 19 L BUN 5 L 4 L Creatinine 0.3 L 0.4 L AST 267 H 85 H Total Protein 6.0 L Albumin 3.4 L 3.5 L 09/29/17 09/30/17 14:54 11:55 WBC RBC Hct Lymph # Seg Neutrophils % Carbon Dioxide BUN 5 L Creatinine 0.3 L AST 84 H 61 H Total Protein Albumin 3.4 L Laboratory Results - last 24 hr 09/29/17 09/30/17 14:25 11:55 Sodium 143 141 Potassium 3.8 4.0 Chloride 103.6 99.8 Carbon Dioxide 22 22 Anion Gap 21 23 BUN 4 L 5 L Creatinine 0.4 L 0.3 L Estimated GFR > 60 > 60 BUN/Creatinine Ratio 10 17 Glucose 85 100 Calcium 8.7 9.1 Total Bilirubin 0.20 0.20 AST 85 H 61 H ALT 35 28 Alkaline Phosphatase 37 38 Total Protein 6.0 L 6.4 Albumin 3.5 L 3.4 L Albumin/Globulin Ratio 1.4 1.1
[2017-09-30] MEDS: CEPACOL X STRENGTH MM PRN (23:07)
[2017-10-01] MEDS: TAMIFLU PO SCH ×2 (10:50→21:34)
[2017-10-01] MEDS: LACTATED RINGERS 1,000 ML IV SCH ×2 (11:00→21:34)
[2017-10-01] MEDS: CEPACOL X STRENGTH MM PRN ×2 (11:00→20:57)
[2017-10-01] MEDS: PRENATAL VITAMIN PO SCH (11:42)
--- NOTE | 2017-10-01 12:00 | Progress Note ---
Assessment and Plan - Patient Problems (1) 28 weeks gestation of Onset Date: 09/29/17 Current Visit: Yes Status: Acute Plan to address problem: A: IUP @ 28 3/7 weeks Flu-like symptoms - improving on Tamiflu - Day 7 of 10 Tachycardia - improved Elevated LFT's - improving P: Continue present management Appreciate APA consultation TORCH titers pending Cardiology consultation - pending (2) tachycardia Onset Date: 09/29/17 Current Visit: Yes Status: Acute (3) Flu-like symptoms Onset Date: 09/29/17 Current Visit: Yes Status: Acute Subjective - Subjective Date of service: 10/01/17 Principal diagnosis: IUP @ 28 3/7 weeks; Flu-like symptoms Interval history: Pt states she is feeling much better. Sore throat improved, and denies headaches , blurred vision, epigastric pain, contractions or bleeding. + FM Patient reports: movement normal, no new complaints, no loss of fluid, no vaginal bleeding, no contractions Objective - Vital Signs Vital Signs: Vital Signs - 12hr 10/01/17 10/01/17 10/01/17 00:30 05:17 05:22 Temperature 97.8 F Pulse Rate 89 83 Respiratory 20 Rate Blood Pressure Blood Pressure 117/60 [Left] O2 Sat by Pulse 97 100 95 Oximetry 10/01/17 10/01/17 10/01/17 05:27 05:32 05:37 Temperature Pulse Rate 82 83 88 Respiratory Rate Blood Pressure Blood Pressure [Left] O2 Sat by Pulse 95 96 97 Oximetry 10/01/17 10/01/17 10/01/17 05:42 05:47 05:52 Temperature Pulse Rate 86 83 87 Respiratory Rate Blood Pressure Blood Pressure [Left] O2 Sat by Pulse 96 95 95 Oximetry 10/01/17 10/01/17 10/01/17 05:57 06:02 06:07 Temperature Pulse Rate 91 H 83 102 H Respiratory Rate Blood Pressure Blood Pressure [Left] O2 Sat by Pulse 97 95 95 Oximetry 10/01/17 10/01/17 10/01/17 06:08 06:12 06:15 Temperature Pulse Rate 85 90 82 Respiratory Rate Blood Pressure Blood Pressure [Left] O2 Sat by Pulse 94 97 94 Oximetry 10/01/17 10/01/17 10/01/17 06:17 06:22 06:26 Temperature Pulse Rate 84 83 91 H Respiratory Rate Blood Pressure Blood Pressure [Left] O2 Sat by Pulse 93 96 94 Oximetry 10/01/17 10/01/17 10/01/17 06:27 06:32 06:37 Temperature Pulse Rate 85 81 84 Respiratory Rate Blood Pressure Blood Pressure [Left] O2 Sat by Pulse 96 95 96 Oximetry 10/01/17 10/01/17 10/01/17 06:42 06:44 06:47 Temperature Pulse Rate 88 81 89 Respiratory Rate Blood Pressure Blood Pressure [Left] O2 Sat by Pulse 93 93 94 Oximetry 10/01/17 10/01/17 10/01/17 06:51 06:52 06:56 Temperature Pulse Rate 82 82 89 Respiratory Rate Blood Pressure Blood Pressure [Left] O2 Sat by Pulse 94 94 94 Oximetry 10/01/17 10/01/17 10/01/17 06:57 07:02 07:03 Temperature Pulse Rate 100 H 82 79 Respiratory Rate Blood Pressure Blood Pressure [Left] O2 Sat by Pulse 95 96 93 Oximetry 10/01/17 10/01/17 10/01/17 07:07 07:09 07:12 Temperature Pulse Rate 81 73 83 Respiratory Rate Blood Pressure Blood Pressure [Left] O2 Sat by Pulse 96 92 93 Oximetry 10/01/17 10/01/17 10/01/17 07:14 07:17 07:19 Temperature Pulse Rate 90 72 76 Respiratory Rate Blood Pressure Blood Pressure [Left] O2 Sat by Pulse 92 92 92 Oximetry 10/01/17 10/01/17 10/01/17 07:22 07:25 07:27 Temperature Pulse Rate 80 79 83 Respiratory Rate Blood Pressure Blood Pressure [Left] O2 Sat by Pulse 95 94 94 Oximetry 10/01/17 10/01/17 10/01/17 07:30 07:32 07:36 Temperature Pulse Rate 73 72 59 L Respiratory Rate Blood Pressure Blood Pressure [Left] O2 Sat by Pulse 94 95 94 Oximetry 10/01/17 10/01/17 10/01/17 07:37 07:42 07:44 Temperature Pulse Rate 78 82 80 Respiratory Rate Blood Pressure Blood Pressure [Left] O2 Sat by Pulse 94 96 94 Oximetry 10/01/17 10/01/17 10/01/17 07:47 07:51 07:52 Temperature 98.4 F Pulse Rate 82 85 88 Respiratory 18 Rate Blood Pressure Blood Pressure 117/68 [Left] O2 Sat by Pulse 95 94 95 Oximetry 10/01/17 10/01/17 10/01/17 07:57 08:02 08:07 Temperature Pulse Rate 86 89 96 H Respiratory Rate Blood Pressure 117/68 Blood Pressure [Left] O2 Sat by Pulse 95 95 96 Oximetry 10/01/17 10/01/17 10/01/17 08:12 08:27 08:32 Temperature Pulse Rate 97 H 78 104 H Respiratory Rate Blood Pressure Blood Pressure [Left] O2 Sat by Pulse 97 96 97 Oximetry 10/01/17 10/01/17 10/01/17 08:37 08:42 08:47 Temperature Pulse Rate 95 H 97 H 98 H Respiratory Rate Blood Pressure Blood Pressure [Left] O2 Sat by Pulse 96 96 97 Oximetry 10/01/17 10/01/17 10/01/17 08:52 08:57 09:02 Temperature Pulse Rate 94 H 95 H 94 H Respiratory Rate Blood Pressure Blood Pressure [Left] O2 Sat by Pulse 97 97 96 Oximetry 10/01/17 10/01/17 10/01/17 09:07 09:12 09:17 Temperature Pulse Rate 95 H 93 H 99 H Respiratory Rate Blood Pressure Blood Pressure [Left] O2 Sat by Pulse 97 96 96 Oximetry 10/01/17 10/01/17 10/01/17 09:22 09:27 09:31 Temperature Pulse Rate 92 H 94 H 95 H Respiratory Rate Blood Pressure Blood Pressure [Left] O2 Sat by Pulse 96 96 94 Oximetry 10/01/17 10/01/17 10/01/17 09:32 09:36 09:37 Temperature Pulse Rate 94 H 93 H 99 H Respiratory Rate Blood Pressure Blood Pressure [Left] O2 Sat by Pulse 95 94 94 Oximetry 10/01/17 10/01/17 10/01/17 09:42 09:47 09:52 Temperature Pulse Rate 89 93 H 98 H Respiratory Rate Blood Pressure Blood Pressure [Left] O2 Sat by Pulse 96 96 96 Oximetry 10/01/17 10/01/17 10/01/17 10:04 10:09 10:14 Temperature Pulse Rate 89 95 H 97 H Respiratory Rate Blood Pressure Blood Pressure [Left] O2 Sat by Pulse 97 98 95 Oximetry 10/01/17 10/01/17 10/01/17 10:19 10:24 10:25 Temperature Pulse Rate 94 H 85 90 Respiratory Rate Blood Pressure Blood Pressure [Left] O2 Sat by Pulse 96 95 94 Oximetry 10/01/17 10/01/17 10/01/17 10:29 10:34 10:39 Temperature Pulse Rate 88 95 H 79 Respiratory Rate Blood Pressure Blood Pressure [Left] O2 Sat by Pulse 95 95 96 Oximetry 10/01/17 10/01/17 10/01/17 10:44 10:49 11:01 Temperature Pulse Rate 91 H 89 88 Respiratory Rate Blood Pressure Blood Pressure [Left] O2 Sat by Pulse 96 97 97 Oximetry 10/01/17 10/01/17 10/01/17 11:06 11:09 11:11 Temperature Pulse Rate 83 82 83 Respiratory Rate Blood Pressure Blood Pressure [Left] O2 Sat by Pulse 96 94 96 Oximetry 10/01/17 10/01/17 10/01/17 11:16 11:21 11:22 Temperature Pulse Rate 82 93 H 91 H Respiratory Rate Blood Pressure Blood Pressure [Left] O2 Sat by Pulse 96 97 94 Oximetry 10/01/17 10/01/17 10/01/17 11:26 11:28 11:31 Temperature Pulse Rate 91 H 93 H 78 Respiratory Rate Blood Pressure Blood Pressure [Left] O2 Sat by Pulse 97 94 96 Oximetry 10/01/17 10/01/17 10/01/17 11:36 11:40 11:41 Temperature Pulse Rate 94 H 93 H 83 Respiratory Rate Blood Pressure Blood Pressure [Left] O2 Sat by Pulse 97 94 96 Oximetry 10/01/17 11:45 Temperature Pulse Rate 87 Respiratory Rate Blood Pressure Blood Pressure [Left] O2 Sat by Pulse 94 Oximetry - Exam Cardiovascular: Regular rate Lungs: Clear to auscultation Abdomen: Present: normal appearance, soft FHR: category 1 Uterine Contraction Monitor Mode: External Uterine Contraction Pattern: Absent - Labs Labs: Abnormal Labs 09/28/17 09/28/17 09/29/17 12:56 13:16 14:25 WBC 4.3 L RBC 3.58 L Hct 30.2 L Lymph # 0.7 L Seg Neutrophils % 76.3 H Carbon Dioxide 19 L BUN 5 L 4 L Creatinine 0.3 L 0.4 L AST 267 H 85 H Total Protein 6.0 L Albumin 3.4 L 3.5 L 09/29/17 09/30/17 14:54 11:55 WBC RBC Hct Lymph # Seg Neutrophils % Carbon Dioxide BUN 5 L Creatinine 0.3 L AST 84 H 61 H Total Protein Albumin 3.4 L Laboratory Results - last 24 hr 09/30/17 11:55 Sodium 141 Potassium 4.0 Chloride 99.8 Carbon Dioxide 22 Anion Gap 23 BUN 5 L Creatinine 0.3 L Estimated GFR > 60 BUN/Creatinine Ratio 17 Glucose 100 Calcium 9.1 Total Bilirubin 0.20 AST 61 H ALT 28 Alkaline Phosphatase 38 Total Protein 6.4 Albumin 3.4 L Albumin/Globulin Ratio 1.1
--- NOTE | 2017-10-01 13:48 | Consultation ---
History of Present Illness Consult date: 10/01/17 Consult reason: tachycardia History of present illness: The patient is a 27-year-old woman who is 28 weeks , and admitted to the antepartum unit, with symptoms of flulike illness. Cardiac consultation was requested for maternal tachycardia. A review of vital signs taken from the patient she'll have repeat during the admission so far to be 80s to 90s, with an occasional heart rate monitored in the low 100s at the time of her presentation. Today, ECG is in normal sinus rhythm at 92, normal ECG. The patient otherwise has no cardiac complaints. There is no chest pain, no palpitations, no unusual shortness of breath, no edema. She describes no prior cardiac history. This is her fourth and she has no previous cardiac issues during . Past History Past Medical History: No medical history Social history: full code. denies: Lives alone, lives with family, smoking, alcohol abuse, IV drug use Medications and Allergies Allergies Allergy/AdvReac Type Severity Reaction Status Date / Time seafood Allergy Swelling Uncoded 01/14/16 12:01 Home Medications Medication Instructions Recorded Confirmed Last Taken Type Cephalexin [Keflex] 500 mg PO Q12HR #20 cap 01/14/16 09/28/17 Unknown Rx Ibuprofen [Motrin 800 MG tab] 800 mg PO Q8HR PRN #30 tablet 01/14/16 09/28/17 Unknown Rx Sulfamethoxazole/Trimethoprim 1 each PO BID #20 tablet 01/14/16 09/28/17 Unknown Rx [Bactrim DS TAB] Promethazine [Phenergan TAB] 25 mg PO Q6HR PRN #20 tab 09/17/16 09/28/17 2 Weeks Ago Rx ~09/14/17 25 Active Meds: Active Medications Acetaminophen (Tylenol) 650 mg PO Q4H PRN PRN Reason: Pain MILD(1-3)/Fever >100.5/BONNER Last Admin: 09/30/17 23:10 Dose: 650 mg Benzocaine/Menthol (Cepacol X Strength) 1 each MM Q2HR PRN PRN Reason: Sore Throat Last Admin: 10/01/17 11:00 Dose: 1 each Diphenhydramine HCl (Benadryl) 25 mg PO Q6H PRN PRN Reason: Itching Docusate Sodium (Colace) 100 mg PO Q12H PRN PRN Reason: Constipation Last Admin: 09/30/17 23:08 Dose: 100 mg Lactated Ringer's (Lactated Ringers) 1,000 mls @ 125 mls/hr IV DIRECT [facility] Last Admin: 10/01/17 11:00 Dose: 125 mls/hr Multivitamins/Iron/Calcium ( Vitamin) 1 each PO QDAY [facility] Last Admin: 10/01/17 11:42 Dose: 1 each Ondansetron HCl (Zofran) 4 mg IV Q6H PRN PRN Reason: Nausea And Vomiting Oseltamivir Phosphate (Tamiflu) 75 mg PO BID [facility] Stop: 10/02/17 22:01 Last Admin: 10/01/17 10:50 Dose: 75 mg Review of Systems Cardiovascular: shortness of breath, no chest pain, no orthopnea, no palpitations, no rapid/irregular heart beat, no edema, no syncope, no lightheadedness Physical Examination Vital Signs Temp Pulse 99.8 F H 124 H 09/28/17 12:05 09/28/17 12:05 General appearance: no acute distress HEENT: Positive: PERRL Neck: Positive: neck supple Cardiac: Positive: Reg Rate and Rhythm Lungs: Positive: clear to auscultation Neuro: Positive: Grossly Intact Abdomen: Positive: Soft Female genitourinary: deferred Skin: Positive: Clear Extremities: Absent: edema Results 09/28/17 12:56 09/30/17 11:55 EKG interpretations - Telemetry EKG Rhythm: Sinus Rhythm Assessment and Plan - Patient Problems (1) Tachycardia Current Visit: Yes Status: Acute Plan to address problem: Patient's tachycardia recorded in the low 100s was likely a physiologic sinus tachycardia associated with her admission flulike presentation and anxiety. Patient is currently in a stable sinus rhythm. The ECG is normal. No further cardiac intervention is indicated. Thank you for the consultation, we'll follow with you as necessary.
--- NOTE | 2017-10-01 16:04 | Consultation ---
History of Present Illness Consult date: 10/01/17 Requesting physician: LAURENT DILLON Reason for consult: menorrhagia History of present illness: 27-year-old at 28.2 weeks (LUIS MANUEL 12/21/17) presented with flulike symptoms, [facility] patient. Patient describes a reported history of headache last Tuesday for which she took Tylenol with positive relief . On 09/27/13 patient reported history of fever and chills associated with flank pain and some mild bilateral inguinal pain. No cough, no dysuria or frequency, no diarrhea symptoms, no vaginal discharge or loss of fluid. She reported that her children have been sick for the past week. Note the patient gives an oral history of receiving the flu shot this season last year. In triage, her temp was within normal alternatives her skin feels clammy. It was noted maternal tachycardia and she also has tachycardia. Patient reported history of tachycardia, has not had any workup and no APA consultation requested . Today's assessment patient afebrile with stable maternal pulse . Per patient's RN flu screen was Negative Baseline FHT of 160's with accelerations @ 170's . ) FHR has impoved during hospitalization. 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: chlamydia, gonorrhea, hepatitis B, hepatitis C, herpes, HIV , syphilis, trichomonas - Obstetrical History : 4 Medications and Allergies Allergies Allergy/AdvReac Type Severity Reaction Status Date / Time seafood Allergy Swelling Uncoded 01/14/16 12:01 Home Medications Medication Instructions Recorded Confirmed Last Taken Type Cephalexin [Keflex] 500 mg PO Q12HR #20 cap 01/14/16 09/28/17 Unknown Rx Ibuprofen [Motrin 800 MG tab] 800 mg PO Q8HR PRN #30 tablet 01/14/16 09/28/17 Unknown Rx Sulfamethoxazole/Trimethoprim 1 each PO BID #20 tablet 01/14/16 09/28/17 Unknown Rx [Bactrim DS TAB] Promethazine [Phenergan TAB] 25 mg PO Q6HR PRN #20 tab 09/17/16 09/28/17 2 Weeks Ago Rx ~09/14/17 25 Active Meds: Active Medications Acetaminophen (Tylenol) 650 mg PO Q4H PRN PRN Reason: Pain MILD(1-3)/Fever >100.5/BONNER Last Admin: 09/30/17 23:10 Dose: 650 mg Benzocaine/Menthol (Cepacol X Strength) 1 each MM Q2HR PRN PRN Reason: Sore Throat Last Admin: 10/01/17 11:00 Dose: 1 each Diphenhydramine HCl (Benadryl) 25 mg PO Q6H PRN PRN Reason: Itching Docusate Sodium (Colace) 100 mg PO Q12H PRN PRN Reason: Constipation Last Admin: 09/30/17 23:08 Dose: 100 mg Lactated Ringer's (Lactated Ringers) 1,000 mls @ 125 mls/hr IV DIRECT [facility] Last Admin: 10/01/17 11:00 Dose: 125 mls/hr Multivitamins/Iron/Calcium ( Vitamin) 1 each PO QDAY [facility] Last Admin: 10/01/17 11:42 Dose: 1 each Ondansetron HCl (Zofran) 4 mg IV Q6H PRN PRN Reason: Nausea And Vomiting Oseltamivir Phosphate (Tamiflu) 75 mg PO BID [facility] Stop: 10/02/17 22:01 Last Admin: 10/01/17 10:50 Dose: 75 mg - Vital Signs Vital signs: Vital Signs Temp Pulse 99.8 F H 124 H 09/28/17 12:05 09/28/17 12:05 Temp Pulse Resp BP Pulse Ox 98.4 F 92 H 18 117/68 97 10/01/17 07:52 10/01/17 15:04 10/01/17 07:52 10/01/17 07:57 10/01/17 15:04 Results Result Diagrams: 09/28/17 12:56 09/30/17 11:55 All other labs normal. Assessment and Plan ASSESSMENT: IUP @ 28 3/7 weeks Flu-like symptoms - improving on Tamiflu - Day 7 of 10 Tachycardia - improved Elevated LFT's - improving Presently Afebrile Baseline FHT 160's Presently Cat I tracing Negative Hept panel Negative Urine culture TSH WNL Maternal obesity RECOMMENDATIONS: -In agreement with current management -Continue Tamiflu course -Since patient was non compliant with outpatient cardiology appointment - obtain cardiology consult -With any concerns notify marketing automation specialist APA provider - Dr. Head As per Cardiology consultation: Patient's tachycardia recorded in the low 100s was likely a physiologic sinus tachycardia associated with her admission flulike presentation and anxiety. Patient is currently in a stable sinus rhythm. The ECG is normal. No further cardiac intervention is indicated.
[2017-10-02 09:21] LABS: Basophils % (Auto) 0.3 % (0.0-1.8); Eosinophils # (Auto) 0.1 K/mm3 (0.0-0.4); Eosinophils % (Auto) 1.1 % (0.0-4.3); Hematocrit 29.1 % (30.3-42.9); Hemoglobin 9.9 gm/dl (10.1-14.3); Lymphocytes # (Auto) 1.1 K/mm3 (1.2-5.4); Lymphocytes % (Auto) 21.5 % (13.4-35.0); Mean Corpuscular HGB Conc 34 % (30-34); Mean Corpuscular Hemoglobin 29 pg (28-32); Mean Corpuscular Volume 84 fl (79-97); Monocytes # (Auto) 0.3 K/mm3 (0.0-0.8); Monocytes % (Auto) 5.8 % (0.0-7.3); Platelet Count 139 K/mm3 (140-440); Red Blood Count 3.47 M/mm3 (3.65-5.03)
[2017-10-02 09:37] LABS: Alanine Aminotransferase 15 units/L (7-56); Albumin 3.4 g/dL (3.9-5); BUN/Creatinine Ratio 15; Blood Urea Nitrogen 6 mg/dL (7-17); Calcium 8.4 mg/dL (8.4-10.2); Hemolysis Index 2
--- NOTE | 2017-10-02 11:02 | Progress Note ---
Assessment and Plan - Patient Problems (1) 28 weeks gestation of Onset Date: 09/29/17 Current Visit: Yes Status: Acute Plan to address problem: A: IUP @ 28 4/7 weeks Flu-like symptoms - improving on Tamiflu - Day#9 of 10 Tachycardia - resolved Elevated LFT's - resolved P: Continue present management Will discharge to home tomorrow after last dose of Tamiflu (Day #10 of 10) (2) tachycardia Onset Date: 09/29/17 Current Visit: Yes Status: Acute (3) Flu-like symptoms Onset Date: 09/29/17 Current Visit: Yes Status: Acute Subjective - Subjective Date of service: 10/02/17 Principal diagnosis: IUP @ 28 4/7 weeks; Flu-like symptoms Interval history: Pt is feeling well without complaints. She denies headaches , blurred vision, epigastric pain, contractions or bleeding. + FM Patient reports: movement normal, no new complaints, no loss of fluid, no vaginal bleeding, no contractions Objective - Vital Signs Vital Signs: Vital Signs - 12hr 10/02/17 10/02/17 10/02/17 06:53 08:54 09:02 Temperature 98.6 F 99.0 F Pulse Rate 88 88 Respiratory 18 18 Rate Blood Pressure 119/59 Blood Pressure 119/59 [Left] O2 Sat by Pulse 97 Oximetry - Exam Cardiovascular: Regular rate Lungs: Clear to auscultation Abdomen: Present: normal appearance, soft Uterus: Present: normal FHR: category 1 Uterine Contraction Monitor Mode: External Uterine Contraction Pattern: Absent - Labs Labs: Abnormal Labs 09/28/17 09/28/17 09/29/17 12:56 13:16 14:25 WBC 4.3 L RBC 3.58 L Hgb Hct 30.2 L Plt Count Lymph # 0.7 L Seg Neutrophils % 76.3 H Potassium Carbon Dioxide 19 L BUN 5 L 4 L Creatinine 0.3 L 0.4 L Glucose AST 267 H 85 H Total Protein 6.0 L Albumin 3.4 L 3.5 L 09/29/17 09/30/17 10/02/17 14:54 11:55 08:53 WBC RBC 3.47 L Hgb 9.9 L Hct 29.1 L Plt Count 139 L Lymph # 1.1 L Seg Neutrophils % 71.3 H Potassium Carbon Dioxide BUN 5 L Creatinine 0.3 L Glucose AST 84 H 61 H Total Protein Albumin 3.4 L 10/02/17 08:53 WBC RBC Hgb Hct Plt Count Lymph # Seg Neutrophils % Potassium 3.3 L Carbon Dioxide 20 L BUN 6 L Creatinine 0.4 L Glucose 114 H AST Total Protein 6.0 L Albumin 3.4 L Laboratory Results - last 24 hr 10/02/17 10/02/17 08:53 08:53 WBC 5.3 RBC 3.47 L Hgb 9.9 L Hct 29.1 L MCV 84 MCH 29 MCHC 34 RDW 14.0 Plt Count 139 L Lymph % (Auto) 21.5 [place] % (Auto) 5.8 Eos % (Auto) 1.1 Baso % (Auto) 0.3 Lymph # 1.1 L [place] # 0.3 Eos # 0.1 Baso # 0.0 Seg Neutrophils % 71.3 H Seg Neutrophils # 3.7 Sodium 141 Potassium 3.3 L Chloride 102.2 Carbon Dioxide 20 L Anion Gap 22 BUN 6 L Creatinine 0.4 L Estimated GFR > 60 BUN/Creatinine Ratio 15 Glucose 114 H Calcium 8.4 Total Bilirubin 0.20 AST 19 ALT 15 Alkaline Phosphatase 38 Total Protein 6.0 L Albumin 3.4 L Albumin/Globulin Ratio 1.3
[2017-10-02] MEDS: TAMIFLU PO SCH ×2 (12:03→22:52)
[2017-10-02] MEDS: LACTATED RINGERS 1,000 ML IV SCH (12:04)
[2017-10-03] MEDS: K-DUR PO PRN ×2 (07:59→10:17)
[2017-10-03] MEDS: PRENATAL VITAMIN PO SCH (10:16)
[2017-10-03 12:41] VITALS: BP 132/61
--- NOTE | 2017-10-03 14:03 | Progress Note ---
Assessment and Plan - Patient Problems (1) 28 weeks gestation of Onset Date: 09/29/17 Current Visit: Yes Status: Chronic Plan to address problem: A: IUP @ 28 5/7 weeks Flu-like symptoms - improved on Tamiflu - Day#10 of 10 Tachycardia - resolved Elevated LFT's - resolved Hypokalemia - resolved P: May go home today. (2) tachycardia Onset Date: 09/29/17 Current Visit: Yes Status: Resolved (3) Flu-like symptoms Onset Date: 09/29/17 Current Visit: Yes Status: Resolved Subjective - Subjective Date of service: 10/03/17 Principal diagnosis: IUP @ 28 5/7 weeks; Flu-like symptoms - resolved Interval history: Pt is feeling well without complaints. She denies headaches , blurred vision, epigastric pain, contractions or bleeding. + FM Patient reports: movement normal, no new complaints, no loss of fluid, no vaginal bleeding, no contractions Objective - Vital Signs Vital Signs: Vital Signs - 12hr 10/03/17 10/03/17 10/03/17 07:35 12:43 12:44 Temperature 97.3 F L 97.8 F Pulse Rate 75 70 68 Respiratory 18 18 Rate Blood Pressure 113/59 132/61 Blood Pressure 113/59 132/61 [Left] O2 Sat by Pulse 95 98 Oximetry - Exam Abdomen: Present: normal appearance, soft Uterus: Present: normal FHR: category 1 Uterine Contraction Monitor Mode: External Uterine Contraction Pattern: Absent - Labs Labs: Abnormal Labs 09/28/17 09/28/17 09/29/17 12:56 13:16 14:25 WBC 4.3 L RBC 3.58 L Hgb Hct 30.2 L Plt Count Lymph # 0.7 L Seg Neutrophils % 76.3 H Potassium Carbon Dioxide 19 L BUN 5 L 4 L Creatinine 0.3 L 0.4 L Glucose AST 267 H 85 H Total Protein 6.0 L Albumin 3.4 L 3.5 L 09/29/17 09/30/17 10/02/17 14:54 11:55 08:53 WBC RBC 3.47 L Hgb 9.9 L Hct 29.1 L Plt Count 139 L Lymph # 1.1 L Seg Neutrophils % 71.3 H Potassium Carbon Dioxide BUN 5 L Creatinine 0.3 L Glucose AST 84 H 61 H Total Protein Albumin 3.4 L 10/02/17 08:53 WBC RBC Hgb Hct Plt Count Lymph # Seg Neutrophils % Potassium 3.3 L Carbon Dioxide 20 L BUN 6 L Creatinine 0.4 L Glucose 114 H AST Total Protein 6.0 L Albumin 3.4 L Laboratory Results - last 24 hr 10/03/17 12:45 Potassium 4.0 D
--- NOTE | 2017-10-03 14:04 | Discharge Summary ---
Providers - Providers Date of Admission: 09/29/17 09:00 Date of discharge: 10/03/17 Attending physician: CHINTAN CALDERON 09/28/17 12:54 Consult to Physician [CONS] Routine Consulting Provider: PERICO ARMSTRONG I Reason For Exam: tachycardia Place consult to:: office Notified:: yes Phone number called:: [phone] Was contact made?: Yes If yes, spoke with:: ERASTO Time called:: 19:25 Comment:: WILL SEE IN AM 09/30/17 16:54 Consult to Physician [CONS] Urgent Consulting Provider: ALDO NOLEN Reason For Exam: Maternal tachycardia Place consult to:: [facility] Notified:: Office Phone number called:: [phone] Was contact made?: Yes Time called:: 16:56 10/01/17 14:29 Consult to Cardiology [CONS] Stat Consulting Provider: CANDICE THOMAS Reason For Exam: TACHYCARDIA - EKG Primary care physician: LAURENT DILLON Hospitalization Reason for admission: observation, other (IUP @ 28 weeks; Flu-like symptoms) Other procedures: none complications: none Discharge diagnosis: other (IUP @ 28 5/7 weeks; Flu-like symptoms) Hospital course: Pt is a 27-year-old at 28 weeks (LUIS MANUEL 12/21/17) presented to [facility] L&D with flu-like symptoms. She is a [facility] patient, with onset of headache last week for which she took Tylenol, and started to have fever and chills associated with flank pain and some mild bilateral inguinal pain. She denied cough, dysuria or frequency, diarrhea symptoms, vaginal discharge or loss of fluid. She reported that her children have been sick for the past week. In triage, her temp was within normal limits, but her skin felt clammy, and she was tachycardic. Patient gives and oral history of tachycardia, has not had any workup. She was admitted and received 10 days of Tamiflu and her symptoms resolved. Her elevated liver tests also resolved and her hypokalemia was corrected. She was seen by the Court Worker and did not require further evaluation, and the Perinatologist was consulted on her care. Today she is back to her normal self and ready to go home. Condition at discharge: Good Disposition: DC-01 TO HOME OR SELFCARE - Discharge Diagnoses (1) 28 weeks gestation of Status: Chronic (2) tachycardia Status: Resolved (3) Flu-like symptoms Status: Resolved Plan - Provider Discharge Summary Activity: routine, no sex for 6 weeks, no heavy lifting 4 weeks, no strenuous exercise Diet: routine Instructions: routine Additional instructions: [] Smoking cessation referral if applicable(refer to patient education folder for contact #) [] Refer to [facility]'s [place] Booklet Call your doctor immediately for: * Fever > 100.5 * Heavy vaginal bleeding ( >1 pad per hour) * Severe persistent headache * Shortness of breath * Reddened, hot, painful area to leg or breast * Drainage or odor from incision. * Keep incision clean and dry at all times and follow doctor's instructions regarding bathing/showering - Follow up plan Follow up: LAURENT DILLON MD [Primary Care Provider] - 7 Days
== END 2017-10-03 14:55 | disposition home or self-care (01) | DRG 781 ==
LOC: TRG 11:25 → LD 11:29 → TRG 18:06 → LD 18:07 → OBSVTOIN 09-29 09:00
PROVIDERS: ADMIT Obstetrics & Gynecology Gynecology; ATTEND Obstetrics & Gynecology Gynecology
DX: O76 Abnormality in fetal heart rate and rhythm complicating labor and delivery (principal); O98.513 Other viral diseases complicating pregnancy, third trimester; O99.283 Endocrine, nutritional and metabolic diseases complicating pregnancy, third trimester; E87.6 Hypokalemia; O99.213 Obesity complicating pregnancy, third trimester; E66.9 Obesity, unspecified; Z3A.28 28 weeks gestation of pregnancy; Z91.013 Allergy to seafood; Z79.899 Other long term (current) drug therapy; Z68.36 Body mass index [BMI] 36.0-36.9, adult
CPT/HCPCS: 36415; 76816; 76819; 80053; 80074; 80307; 84132; 84443; 84450; 85025; 86695; 86762; 86777; 86778; 86850; 86900; 86901; 87086; 87497; 93005; 93010; G0378; J7120

== ENCOUNTER 2017-10-24 13:53 | Outpatient (CLI) | payer MEDICAID ==
[2017-10-24 14:26] VITALS: BP 120/56
[2017-10-24] MEDS ORDERED: BRETHINE ONE (14:46)
[2017-10-24] MEDS ORDERED: BRETHINE SUB-Q PRN (14:46)
[2017-10-24] MEDS ORDERED: NORMOSOL-R PH 7.4 1,000 ML IV SCH (15:00)
[2017-10-24 15:32] LABS: Bilirubin,Urine NEG (Negative); Blood,Urine NEG (Negative); Color,Urine Yellow (Yellow); Mucus,Urine FEW /HPF; Protein,Urine <15 mg/dL mg/dL (Negative); RBC,Urine < 1.0 /HPF (0.0-6.0); WBC,Urine < 1.0 /HPF (0.0-6.0)
== END 2017-10-24 16:10 | disposition home or self-care (01) ==
LOC: TRG 13:53
PROVIDERS: ATTEND Obstetrics & Gynecology
DX: Z34.93 Encounter for supervision of normal pregnancy, unspecified, third trimester (principal); Z3A.31 31 weeks gestation of pregnancy
CPT/HCPCS: 59025; 81001; 96360; 96361; 96372; J3105

== ENCOUNTER 2017-11-17 15:48 | Outpatient (CLI) | payer MEDICAID ==
[2017-11-17 16:35] VITALS: BP 132/77
== END 2017-11-17 17:00 | disposition home or self-care (01) ==
LOC: TRG 15:48
PROVIDERS: ATTEND Obstetrics & Gynecology
DX: O47.03 False labor before 37 completed weeks of gestation, third trimester (principal); Z3A.36 36 weeks gestation of pregnancy
CPT/HCPCS: 59025

== ENCOUNTER 2017-11-21 15:05 | Outpatient (CLI) | payer MEDICAID ==
[2017-11-21] MEDS ORDERED: LACTATED RINGERS 500 ML IV ONE (16:00)
[2017-11-21 16:13] LABS: Hematocrit 30.9 % (30.3-42.9); Hemoglobin 10.3 gm/dl (10.1-14.3); Mean Corpuscular HGB Conc 33 % (30-34); Mean Corpuscular Hemoglobin 28 pg (28-32); Mean Corpuscular Volume 83 fl (79-97); Platelet Count 189 K/mm3 (140-440); Red Blood Count 3.72 M/mm3 (3.65-5.03); Red Cell Distribution Width 15.9 % (13.2-15.2)
[2017-11-21 16:32] LABS: Alanine Aminotransferase 6 units/L (7-56); Uric Acid 7.5 mg/dL (3.5-7.6)
[2017-11-21 17:33] VITALS: BP 117/69
[2017-11-21 17:49] LABS: Bacteria,Urine 1+ /HPF (Negative); Bilirubin,Urine NEG (Negative); Blood,Urine NEG (Negative); Color,Urine Yellow (Yellow); Mucus,Urine 2+ /HPF; Urobilinogen,Urine < 2.0 mg/dL (<2.0)
== END 2017-11-21 17:55 | disposition home or self-care (01) ==
LOC: TRG 15:05
PROVIDERS: ATTEND Obstetrics & Gynecology
DX: O47.03 False labor before 37 completed weeks of gestation, third trimester (principal); Z3A.35 35 weeks gestation of pregnancy
CPT/HCPCS: 36415; 59025; 81001; 82565; 83615; 84450; 84460; 84550; 85027

== ENCOUNTER 2017-11-29 18:05 | Outpatient (CLI) | payer MEDICAID ==
[2017-11-29] MEDS ORDERED: LACTATED RINGERS 1,000 ML IV SCH (19:00)
[2017-11-29 19:28] LABS: Bilirubin,Urine NEG (Negative); Blood,Urine NEG (Negative); Color,Urine Yellow (Yellow); Mucus,Urine 1+ /HPF; Protein,Urine <15 mg/dL mg/dL (Negative); Urobilinogen,Urine < 2.0 mg/dL (<2.0); WBC,Urine < 1.0 /HPF (0.0-6.0)
[2017-11-29] MEDS ORDERED: TYLENOL PO ONE (21:17)
[2017-11-29 21:40] VITALS: BP 127/80
== END 2017-11-29 21:33 | disposition home or self-care (01) ==
LOC: TRG 18:05
PROVIDERS: ATTEND Obstetrics & Gynecology
DX: O47.03 False labor before 37 completed weeks of gestation, third trimester (principal); Z3A.36 36 weeks gestation of pregnancy
CPT/HCPCS: 59025; 81001; 96360; J7120

== ENCOUNTER 2017-12-02 17:19 | Inpatient (IN) | payer MEDICAID ==
[2017-12-02] MEDS ORDERED: BRETHINE IVP PRN (19:04)
[2017-12-02] MEDS ORDERED: MINERAL OIL PO PRN (19:04)
[2017-12-02] MEDS ORDERED: ePHEDrine SULFATE IV PRN (19:04)
[2017-12-02] MEDS ORDERED: BRETHINE SUB-Q PRN (19:04)
--- NOTE | 2017-12-02 19:04 | History and Physical Report ---
History of Present Illness Date of examination: 12/02/17 Date of admission: 12/02/17 18:25 Chief complaint: Labor History of present illness: Pt is a 27yo WF EDC 12/21/17 EGA 27 2/7 weeks presents to L&D complaining of SROM clear fluid (>1000mls) in Triage @ 1810 followed by RUC's q 2-3 mins. She received insufficient care at [facility] with the last vist noted 08/22/17 @ 22 5/7 weeks. records are available and GBS is unknown. Past History Past Medical History: no pertinent history Past Surgical History: no surgical history Family/Genetic History: none Social history: no significant social history, - Obstetrical History Expected Date of Delivery: 12/21/17 Actual Gestation: 37 Week(s) 2 Day(s) : 4 Medications and Allergies Allergies Allergy/AdvReac Type Severity Reaction Status Date / Time seafood Allergy Swelling Uncoded 01/14/16 12:01 Home Medications Medication Instructions Recorded Confirmed Last Taken Type Cephalexin [Keflex] 500 mg PO Q12HR #20 cap 01/14/16 09/28/17 Unknown Rx Ibuprofen [Motrin 800 MG tab] 800 mg PO Q8HR PRN #30 tablet 01/14/16 09/28/17 Unknown Rx Sulfamethoxazole/Trimethoprim 1 each PO BID #20 tablet 01/14/16 09/28/17 Unknown Rx [Bactrim DS TAB] Promethazine [Phenergan TAB] 25 mg PO Q6HR PRN #20 tab 09/17/16 09/28/17 2 Weeks Ago Rx ~09/14/17 25 Active Meds: Active Medications Oxytocin (Pitocin) 10 unit IM ONCE ONE Stop: 12/02/17 18:56 Review of Systems All systems: negative - Physical Exam Breasts: Positive: deferred Cardiovascular: Regular rate Lungs: Positive: Clear to auscultation Abdomen: Positive: normal appearance Genitourinary (Female): Positive: normal external genitalia Uterus: Positive: enlarged Extremities: Positive: normal - Obstetrical FHR: category 1 Uterine Contraction Monitor Mode: External Cervical Dilatation: 9 Cervical Effacement Percentage: 100 station: 0 Uterine Contraction Pattern: Regular Uterine Tone Measurement Phase: Contraction Uterine Contraction Intensity: Strong/Firm Results All other labs normal. Assessment and Plan - Patient Problems (1) 37 weeks gestation of Onset Date: 12/02/17 Current Visit: Yes Status: Acute Plan to address problem: A: IUP @ 37 2/7 weeks in labor Insufficient care Unknown GBS P: Admit to L&D for expectant vaginal delivery IV Ampicillin (2) Insufficient care in third trimester Onset Date: 12/02/17 Current Visit: Yes Status: Acute (3) Active labor at term Onset Date: 12/02/17 Current Visit: No Status: Acute
[2017-12-02] MEDS ORDERED: TYLENOL PO PRN (19:13)
[2017-12-02] MEDS ORDERED: MILK OF MAGNESIA PO PRN (19:13)
[2017-12-02] MEDS ORDERED: PHENERGAN PR PRN (19:13)
[2017-12-02] MEDS ORDERED: DULCOLAX PR PRN (19:13)
[2017-12-02] MEDS ORDERED: ZOFRAN IV PRN (19:13)
[2017-12-02] MEDS ORDERED: LANSINOH TP PRN (19:13)
[2017-12-02] MEDS ORDERED: PHENERGAN PO PRN (19:13)
[2017-12-02] MEDS ORDERED: BENADRYL PO PRN (19:13)
[2017-12-02] MEDS ORDERED: TUCKS PAD TP PRN (19:13)
--- NOTE | 2017-12-02 19:24 | Procedure Note ---
OB Delivery Note - Delivery Date of Delivery: 12/02/17 Surgeon: LAURENT DILLON Estimated blood loss: 100cc - Vaginal Delivery presentation: vertex, compound Delivery position: OA Intrapartum events: none Delivery induction: none Delivery augmentation: rupture of membranes Delivery monitor: external FHT, external uterine Route of delivery: Delivery placenta: spontaneous Delivery cord: nuchal cord (x1), 3 umbilical vessels Episiotomy: none Delivery laceration: none Anesthesia: none Delivery comments: delivered OA with left hand and tight nuchal cord x 1, and placed on Mom' s chest for [id number] bonding and delayed cord clamping by Dad - Infant A at 1 minute: 6 at 5 minutes: 9 Infant Gender: Female (3723gms)
[2017-12-02] MEDS: PITOCin/NS 20 UNIT/1000ML DRIP 20 UNITS/1,000 ML BAG IV SCH ×2 (19:30→21:02)
[2017-12-02 19:59] LABS: Hematocrit 30.7 % (30.3-42.9); Hemoglobin 10.5 gm/dl (10.1-14.3); Mean Corpuscular HGB Conc 34 % (30-34); Mean Corpuscular Hemoglobin 28 pg (28-32); Mean Corpuscular Volume 83 fl (79-97); Platelet Count 174 K/mm3 (140-440); Red Cell Distribution Width 15.9 % (13.2-15.2)
[2017-12-02] MEDS ORDERED: PITOCin/NS 30 UNIT/500ML 30 UNITS/500 ML BAG IV SCH (20:00)
[2017-12-02] MEDS ORDERED: XYLOCAINE 2% INFILTRATI ONE (20:00)
[2017-12-02] MEDS ORDERED: LACTATED RINGERS 1,000 ML IV SCH (20:00)
[2017-12-02] MEDS ORDERED: SODIUM CHLORIDE FLUSH SYRINGE 10 ML IV NR (20:00)
[2017-12-02] MEDS ORDERED: PITOCin/NS 20 UNIT/1000ML DRIP 20 UNITS/1,000 ML BAG IV SCH (20:00)
[2017-12-02] MEDS: MOTRIN PO SCH (20:30)
[2017-12-02 20:39] LABS: Alanine Aminotransferase 6 units/L (7-56); Uric Acid 7.5 mg/dL (3.5-7.6)
[2017-12-02] MEDS ORDERED: APRESOLINE IV ONE (21:00)
[2017-12-02] MEDS: NORCO 5/325 PO PRN (21:54)
--- NOTE | 2017-12-03 09:00 | Progress Note ---
Assessment and Plan - Patient Problems (1) 37 weeks gestation of Onset Date: 12/02/17 Current Visit: Yes Status: Resolved (2) Insufficient care in third trimester Onset Date: 12/02/17 Current Visit: Yes Status: Resolved (3) Active labor at term Onset Date: 12/02/17 Current Visit: No Status: Resolved (4) (normal spontaneous vaginal delivery) Onset Date: 12/03/17 Current Visit: No Status: Resolved Plan to address problem: A: S/P - PPD #1 Doing well Asymptomatic anemia - stable P: May go home tomorrow. Subjective - Subjective Date of service: 12/03/17 Principal diagnosis: s/p - PPD #1 Interval history: Pt is feeling well without complaints. Still has lots of questions re: baby's cleft palate. Bleeding improved. Patient reports: appetite normal, voiding normally, pain well controlled, flatus , ambulating normally [place]: doing well, in NICU Objective - Vital Signs Latest vital signs: Vital Signs Temp Pulse Resp BP BP Pulse Ox 12/03/17 05:10 98.0 F 80 20 140/81 95 12/03/17 01:06 97.8 F 94 H 20 127/80 94 12/02/17 22:23 98.1 F 83 20 125/80 93 12/02/17 21:00 97.6 F 135/80 12/02/17 20:32 60 166/96 12/02/17 20:30 16 12/02/17 19:09 97.9 F 71 16 157/93 97 Intake and Output 12/02/17 12/03/17 12/03/17 22:59 06:59 14:59 Intake Total 311.667 240 Output Total 300 1400 Balance 11.667 -1160 Intake: IV 191.667 PITOCin/NS 20 UNIT/1000ML 191.667 DRIP 20 units In 1,000 ml @ 125 mls/hr IV DIRECT DEVIN Rx#:[id number] Oral 240 Intake, Free Water 120 Output: Urine 300 1400 Void 300 1400 Other: Total, Intake Amount 240 Total, Output Amount 300 900 Weight 108.862 kg Estimated Blood Loss 200 - Exam Breasts: Present: deferred Cardiovascular: Present: Regular rate Lungs: Present: Clear to auscultation Abdomen: Present: normal appearance Uterus: Present: normal, firm, fundal height below umbilicus Extremities: Present: normal - Labs Labs: Abnormal lab results 12/02/17 12/02/17 Range/Units 19:20 Unknown RDW 15.9 H (13.2-15.2) % Creatinine 0.5 L (0.7-1.2) mg/dL ALT 6 L (7-56) units/L Lactate Dehydrogenase 188 H (91-180) units/L
[2017-12-03] MEDS: PRENATAL VITAMIN PO SCH (09:46)
[2017-12-03] MEDS: MOTRIN PO SCH ×3 (09:46→23:59)
[2017-12-03] MEDS: COLACE PO SCH ×2 (09:46→22:16)
[2017-12-03] MEDS: FEOSOL PO SCH ×2 (09:47→22:16)
[2017-12-03 11:40] LABS: Hemoglobin 10.6 gm/dl (10.1-14.3)
[2017-12-03] MEDS ORDERED: BOOSTRIX IM ONE (19:13)
[2017-12-03] MEDS ORDERED: M-M-R II VACCINE SUB-Q ONE (19:13)
--- NOTE | 2017-12-03 20:36 | Discharge Summary ---
Providers - Providers Date of Admission: 12/02/17 18:25 Date of discharge: 12/04/17 Attending physician: LAURENT DILLON Primary care physician: LAURENT DILLON Hospitalization Reason for admission: active labor, rupture of membranes, IUP at term Delivery: Episiotomy: none Laceration: none Other procedures: none complications: none Discharge diagnosis: IUP at term delivered [place] baby: female Hospital course: Unremarkable except baby in NICU for evaluation of cleft palate Condition at discharge: Good Disposition: DC-01 TO HOME OR SELFCARE - Discharge Diagnoses (1) 37 weeks gestation of Status: Resolved (2) Insufficient care in third trimester Status: Resolved (3) Active labor at term Status: Resolved (4) (normal spontaneous vaginal delivery) Status: Resolved Plan - Discharge Medications Prescriptions: Ferrous Sulfate [Feosol 325 MG tab] 325 mg PO BID #60 tablet Ibuprofen [Motrin 600 MG tab] 600 mg PO Q6H #30 tablet Vit-Fe Fumar-FA [ Vitamin] 1 each PO QDAY #30 tablet - Provider Discharge Summary Activity: routine, no sex for 6 weeks, no heavy lifting 4 weeks, no strenuous exercise Diet: routine Instructions: routine Additional instructions: [] Smoking cessation referral if applicable(refer to patient education folder for contact #) [] Refer to [facility] Booklet Call your doctor immediately for: * Fever > 100.5 * Heavy vaginal bleeding ( >1 pad per hour) * Severe persistent headache * Shortness of breath * Reddened, hot, painful area to leg or breast * Drainage or odor from incision. * Keep incision clean and dry at all times and follow doctor's instructions regarding bathing/showering - Follow up plan Follow up: LAURENT DILLON MD [Primary Care Provider] - 6 Weeks
[2017-12-03] MEDS: NORCO 5/325 PO PRN (22:16)
[2017-12-04] MEDS: MOTRIN PO SCH ×2 (05:39→12:42)
[2017-12-04] MEDS: COLACE PO SCH (12:41)
[2017-12-04] MEDS: FEOSOL PO SCH (12:42)
[2017-12-04] MEDS: PRENATAL VITAMIN PO SCH (12:43)
[2017-12-04 15:16] VITALS: BP 121/78
== END 2017-12-04 16:47 | disposition home or self-care (01) | DRG 775 ==
LOC: TRG 17:19 → LD 18:25 → OB 21:25
PROVIDERS: ADMIT Obstetrics & Gynecology; ATTEND Obstetrics & Gynecology
PROC: 10E0XZZ Delivery of Products of Conception, External Approach (ICD-10-PCS; principal; 2017-12-02)
PROC: 3E0234Z Introduction of Serum, Toxoid and Vaccine into Muscle, Percutaneous Approach (ICD-10-PCS; 2017-12-03)
DX: O69.81X0 Labor and delivery complicated by cord around neck, without compression, not applicable or unspecified (principal); Z37.0 Single live birth; O99.03 Anemia complicating the puerperium; D64.9 Anemia, unspecified; Z23 Encounter for immunization; Z91.013 Allergy to seafood; Z79.899 Other long term (current) drug therapy; Z3A.37 37 weeks gestation of pregnancy
CPT/HCPCS: 36415; 82565; 83615; 84450; 84460; 84550; 85014; 85018; 85027; 86592; 86706; 86850; 86900; 86901; 88307; 90471; 90715; J0360; J2590

== ENCOUNTER 2018-01-10 13:18 | Emergency (ER) | payer MEDICAID ==
[2018-01-10 13:27] VITALS: BP 122/63
[2018-01-10 14:49] LABS: HCG Qualitative,Urine Negative (Negative)
[2018-01-10 14:51] LABS: Bilirubin,Urine NEG (Negative); Blood,Urine NEG (Negative); Color,Urine Yellow (Yellow); Mucus,Urine 3+ /HPF; Protein,Urine <15 mg/dL mg/dL (Negative); Urobilinogen,Urine < 2.0 mg/dL (<2.0)
== END 2018-01-10 15:42 | disposition left against medical advice (07) ==
LOC: ED 13:18
DX: R10.9 Unspecified abdominal pain (principal); Z53.21 Procedure and treatment not carried out due to patient leaving prior to being seen by health care provider
CPT/HCPCS: 81001; 81025

== ENCOUNTER 2018-05-05 18:08 | Emergency (ER) | payer MEDICAID ==
[2018-05-05] MEDS ORDERED: ASPIRIN PO ONE (19:03)
[2018-05-05 19:55] LABS: Basophils % (Auto) 0.6 % (0.0-1.8); Eosinophils # (Auto) 0.1 K/mm3 (0.0-0.4); Eosinophils % (Auto) 1.2 % (0.0-4.3); Hematocrit 35.6 % (30.3-42.9); Hemoglobin 12.4 gm/dl (10.1-14.3); Lymphocytes # (Auto) 2.7 K/mm3 (1.2-5.4); Lymphocytes % (Auto) 35.9 % (13.4-35.0); Mean Corpuscular HGB Conc 35 % (30-34); Mean Corpuscular Hemoglobin 30 pg (28-32); Mean Corpuscular Volume 86 fl (79-97); Monocytes # (Auto) 0.5 K/mm3 (0.0-0.8); Monocytes % (Auto) 6.8 % (0.0-7.3); Platelet Count 202 K/mm3 (140-440); Red Blood Count 4.14 M/mm3 (3.65-5.03); Red Cell Distribution Width 13.4 % (13.2-15.2)
[2018-05-05 20:32] LABS: BUN/Creatinine Ratio 18; Blood Urea Nitrogen 9 mg/dL (7-17); Calcium 9.8 mg/dL (8.4-10.2); Hemolysis Index 7
[2018-05-06 03:59] VITALS: BP 130/78
--- NOTE | 2018-05-06 04:47 | Emergency Department Report ---
ED General Adult HPI - General Chief complaint: Chest Pain Stated complaint: CHEST PAIN/COUGHING Time Seen by Provider: 05/06/18 04:24 Source: patient Mode of arrival: Ambulatory Limitations: No Limitations - History of Present Illness Initial comments: 27-year-old female who comes to the emergency room for chest pain with cough, nasal congestion, shortness of breath for a few weeks. Patient reports that she has a metallic taste in her mouth. She patient reports that she is about 9 weeks last menstrual period was 03/03/2018. care has not started she has an appointment next month. -: week(s) (2) Location: chest Quality: sharp Consistency: intermittent Improves with: none Worsens with: other (cough) Associated Symptoms: chest pain, cough, shortness of breath Treatments Prior to Arrival: other (yhza-zcx-ystlexy cough medication) - Related Data Previous Rx's Medication Instructions Recorded Last Taken Type Ibuprofen [Motrin 800 MG tab] 800 mg PO Q8HR PRN #30 tablet 01/14/16 Unknown Rx Sulfamethoxazole/Trimethoprim 1 each PO BID #20 tablet 01/14/16 Unknown Rx [Bactrim DS TAB] cephALEXin [Keflex] 500 mg PO Q12HR #20 cap 01/14/16 Unknown Rx Promethazine [Phenergan TAB] 25 mg PO Q6HR PRN #20 tab 09/17/16 2 Weeks Ago Rx ~09/14/17 25 Ferrous Sulfate [Feosol 325 MG tab] 325 mg PO BID #60 tablet 12/03/17 Unknown Rx Ibuprofen [Motrin 600 MG tab] 600 mg PO Q6H #30 tablet 12/03/17 Unknown Rx Vit-Fe Fumar-FA [ 1 each PO QDAY #30 tablet 12/03/17 Unknown Rx Vitamin] Amoxicillin [Amoxicillin TAB] 875 mg PO BID 10 Days #20 tablet 05/06/18 Unknown Rx Cetirizine HCl [ZyrTEC] 10 mg PO QDAY #20 capsule 05/06/18 Unknown Rx Allergies Allergy/AdvReac Type Severity Reaction Status Date / Time seafood Allergy Swelling Uncoded 01/10/18 13:24 ED Review of Systems ROS: Stated complaint: CHEST PAIN/COUGHING Other details as noted in HPI Constitutional: other (sweats) Respiratory: cough, shortness of breath Cardiovascular: chest pain (with cough), dyspnea on exertion Endocrine: no symptoms reported Gastrointestinal: denies: abdominal pain, nausea, diarrhea Genitourinary: denies: urgency, dysuria, discharge ED Past Medical Hx - Past Medical History Hx Hypertension: No Hx Congestive Heart Failure: No Hx Diabetes: No Hx Deep Vein Thrombosis: No Hx Renal Disease: No Hx Sickle Cell Disease: No Hx Seizures: No Hx Asthma: No Hx COPD: No Hx HIV: No - Surgical History Additional Surgical History: pelvis 07/27 - Social History Smoking Status: Never Smoker Substance Use Type: None - Medications Home Medications: Home Medications Medication Instructions Recorded Confirmed Last Taken Type Ibuprofen [Motrin 800 MG tab] 800 mg PO Q8HR PRN #30 tablet 01/14/16 12/02/17 Unknown Rx Sulfamethoxazole/Trimethoprim 1 each PO BID #20 tablet 01/14/16 12/02/17 Unknown Rx [Bactrim DS TAB] cephALEXin [Keflex] 500 mg PO Q12HR #20 cap 01/14/16 12/02/17 Unknown Rx Promethazine [Phenergan TAB] 25 mg PO Q6HR PRN #20 tab 09/17/16 12/02/17 2 Weeks Ago Rx ~09/14/17 25 Ferrous Sulfate [Feosol 325 MG tab] 325 mg PO BID #60 tablet 12/03/17 Unknown Rx Ibuprofen [Motrin 600 MG tab] 600 mg PO Q6H #30 tablet 12/03/17 Unknown Rx Vit-Fe Fumar-FA [ 1 each PO QDAY #30 tablet 12/03/17 Unknown Rx Vitamin] Amoxicillin [Amoxicillin TAB] 875 mg PO BID 10 Days #20 tablet 05/06/18 Unknown Rx Cetirizine HCl [ZyrTEC] 10 mg PO QDAY #20 capsule 05/06/18 Unknown Rx ED Physical Exam - General Limitations: No Limitations General appearance: alert, in no apparent distress - Head Head exam: Present: atraumatic, normocephalic - Eye Eye exam: Present: EOMI - ENT ENT exam: Present: mucous membranes moist - Neck Neck exam: Present: normal inspection - Respiratory Respiratory exam: Present: normal lung sounds bilaterally, other (actively coughing, coarse breath sounds). Absent: respiratory distress - Cardiovascular Cardiovascular Exam: Present: regular rate, normal rhythm. Absent: systolic murmur, diastolic murmur, rubs, gallop - GI/Abdominal GI/Abdominal exam: Present: soft, normal bowel sounds - Neurological Exam Neurological exam: Present: alert, oriented X3 - Psychiatric Psychiatric exam: Present: normal affect, normal mood - Skin Skin exam: Present: warm, dry, intact, normal color. Absent: rash ED Course Vital Signs 05/05/18 05/06/18 18:58 03:58 Temperature 99 F Pulse Rate 86 88 Respiratory 16 18 Rate Blood Pressure 137/72 Blood Pressure 130/78 [Right] O2 Sat by Pulse 96 99 Oximetry ED Medical Decision Making - Lab Data Result diagrams: 05/05/18 19:25 05/05/18 19:25 - Medical Decision Making Patient has been evaluated by this provider fast track. Patient is 9 weeks or not able to do a chest x-ray We'll treat patient presumptively for bronchitis Discharge patient on amoxicillin and Zyrtec. Follow-up with her OB or primary care provider if symptoms persist or gets worse Critical care attestation.: If time is entered above; I have spent that time in minutes in the direct care of this critically ill patient, excluding procedure time. ED Disposition Clinical Impression: Upper respiratory infection Qualifiers: URI type: unspecified URI Qualified Code(s): J06.9 - Acute upper respiratory infection, unspecified Disposition: DC-01 TO HOME OR SELFCARE Is pt being admited?: No Does the pt Need Aspirin: No Condition: Stable Instructions: Upper Respiratory Infection (ED) Additional Instructions: Complete antibiotics as prescribed. Take Zyrtec as prescribed. Follow-up with your OB provider please discontinue taking any [id number] cough medications. Prescriptions: Amoxicillin [Amoxicillin TAB] 875 mg PO BID 10 Days #20 tablet Cetirizine HCl [ZyrTEC] 10 mg PO QDAY #20 capsule Referrals: PRIMARY CARE, [Primary Care Provider] - 3-5 Days
== END 2018-05-06 05:04 | disposition home or self-care (01) ==
LOC: ED 18:08
DX: J06.9 Acute upper respiratory infection, unspecified (principal); Z91.013 Allergy to seafood
CPT/HCPCS: 36415; 80048; 84484; 85025; 93005; 93010; 99284

== ENCOUNTER 2018-05-12 17:51 | Emergency (ER) | payer MEDICAID ==
[2018-05-12] MEDS ORDERED: LIDOCAINE VISCOUS 2% MM STA (20:37)
[2018-05-12] MEDS ORDERED: NACL 0.9% 1000 ML 2,000 ML IV ONE (20:37)
[2018-05-12] MEDS ORDERED: TYLENOL PO ONE (20:37)
[2018-05-12] MEDS ORDERED: PROVENTIL IH ONE (20:37)
--- NOTE | 2018-05-12 20:39 | Emergency Department Report ---
ED General Adult HPI - General Chief complaint: Upper Respiratory Infection Stated complaint: PNEUMONIA/NOT FEELING WELL Time Seen by Provider: 05/12/18 20:16 Source: patient, RN notes reviewed, old records reviewed Mode of arrival: Ambulatory Limitations: No Limitations - History of Present Illness Initial comments: This is a 27-year-old female who is not known to this provider previously. The patient is 4, para 3. Last menstrual period is March 03. [facility]. His not received outpatient ultrasound as of now. Reports she does not consume tobacco or smoke, reports that nobody around her smokes. Presents to the ER with acute on chronic cough. She reports cough for 1 month. She was seen in this department 6 days ago for similar symptoms, and presumptively diagnosed with bronchitis, and was discharged with antibiotics and histamine antagonist, but no albuterol therapy. She reports her cough is getting worse, it is associated with blood tinged mucous, chest wall discomfort. She reports that she also intermittently feels like she is going to pass out. However she has not passed out as of yet. Her first episode of near syncope was this past Tuesday taking a shower. She reports another episode on Tuesday while walking. There is no leg pain and there is no leg swelling. There is no abdominal pain. There is no bright red blood per rectum. She denies urinary symptoms. -: Gradual, week(s) Location: chest Radiation: non-radiation Quality: aching Consistency: intermittent Improves with: rest Worsens with: other (worsens with coughing) Associated Symptoms: chest pain, cough, loss of appetite, malaise, shortness of breath, syncope, weakness. denies: confusion, diaphoresis, fever/chills, headaches, nausea/vomiting, rash, seizure - Related Data Previous Rx's Medication Instructions Recorded Last Taken Type Ibuprofen [Motrin 800 MG tab] 800 mg PO Q8HR PRN #30 tablet 01/14/16 Unknown Rx Sulfamethoxazole/Trimethoprim 1 each PO BID #20 tablet 01/14/16 Unknown Rx [Bactrim DS TAB] cephALEXin [Keflex] 500 mg PO Q12HR #20 cap 01/14/16 Unknown Rx Promethazine [Phenergan TAB] 25 mg PO Q6HR PRN #20 tab 09/17/16 2 Weeks Ago Rx ~09/14/17 25 Ferrous Sulfate [Feosol 325 MG tab] 325 mg PO BID #60 tablet 12/03/17 Unknown Rx Ibuprofen [Motrin 600 MG tab] 600 mg PO Q6H #30 tablet 12/03/17 Unknown Rx Vit-Fe Fumar-FA [ 1 each PO QDAY #30 tablet 12/03/17 Unknown Rx Vitamin] Amoxicillin [Amoxicillin TAB] 875 mg PO BID 10 Days #20 tablet 05/06/18 Unknown Rx Cetirizine HCl [ZyrTEC] 10 mg PO QDAY #20 capsule 05/06/18 Unknown Rx Acetaminophen [Tylenol Arthritis] 650 mg PO Q6HR PRN #30 tablet.er 05/12/18 Unknown Rx Albuterol Sulfate [Proair 90 mcg IH Q4HR PRN #2 aer.pow.ba 05/12/18 Unknown Rx Respiclick] Doxylamine Succinate/Vit B6 1 each PO QHS PRN #30 tablet.dr 05/12/18 Unknown Rx [Jocelyn Dr 10-10 mg Tablet] Vit Calc,Iron,Folic 1 each PO QDAY #30 tablet 05/12/18 Unknown Rx [ Vitamins] Allergies Allergy/AdvReac Type Severity Reaction Status Date / Time seafood Allergy Swelling Uncoded 01/10/18 13:24 ED Review of Systems ROS: Stated complaint: PNEUMONIA/NOT FEELING WELL Other details as noted in HPI Comment: All other systems reviewed and negative ED Past Medical Hx - Past Medical History Hx Hypertension: No Hx Congestive Heart Failure: No Hx Diabetes: No Hx Deep Vein Thrombosis: No Hx Renal Disease: No Hx Sickle Cell Disease: No Hx Seizures: No Hx Asthma: No Hx COPD: No Hx HIV: No - Surgical History Additional Surgical History: pelvis 07/27 - Social History Smoking Status: Never Smoker Substance Use Type: None - Medications Home Medications: Home Medications Medication Instructions Recorded Confirmed Last Taken Type Ibuprofen [Motrin 800 MG tab] 800 mg PO Q8HR PRN #30 tablet 01/14/16 12/02/17 Unknown Rx Sulfamethoxazole/Trimethoprim 1 each PO BID #20 tablet 01/14/16 12/02/17 Unknown Rx [Bactrim DS TAB] cephALEXin [Keflex] 500 mg PO Q12HR #20 cap 01/14/16 12/02/17 Unknown Rx Promethazine [Phenergan TAB] 25 mg PO Q6HR PRN #20 tab 09/17/16 12/02/17 2 Weeks Ago Rx ~09/14/17 25 Ferrous Sulfate [Feosol 325 MG tab] 325 mg PO BID #60 tablet 12/03/17 Unknown Rx Ibuprofen [Motrin 600 MG tab] 600 mg PO Q6H #30 tablet 12/03/17 Unknown Rx Vit-Fe Fumar-FA [ 1 each PO QDAY #30 tablet 12/03/17 Unknown Rx Vitamin] Amoxicillin [Amoxicillin TAB] 875 mg PO BID 10 Days #20 tablet 05/06/18 Unknown Rx Cetirizine HCl [ZyrTEC] 10 mg PO QDAY #20 capsule 05/06/18 Unknown Rx Acetaminophen [Tylenol Arthritis] 650 mg PO Q6HR PRN #30 tablet.er 05/12/18 Unknown Rx Albuterol Sulfate [Proair 90 mcg IH Q4HR PRN #2 aer.pow.ba 05/12/18 Unknown Rx Respiclick] Doxylamine Succinate/Vit B6 1 each PO QHS PRN #30 tablet. 05/12/18 Unknown Rx [Jocelyn Macario 10-10 mg Tablet] Vit Calc,Iron,Folic 1 each PO QDAY #30 tablet 05/12/18 Unknown Rx [ Vitamins] ED Physical Exam - General Limitations: No Limitations General appearance: alert, in no apparent distress - Head Head exam: Present: atraumatic, normocephalic - Eye Eye exam: Present: normal appearance, EOMI, other (visual acuity intact to finger counting, color perception, reading at a close distance). Absent: nystagmus - ENT ENT exam: Present: normal exam, normal orophraynx, mucous membranes moist, normal external ear exam - Neck Neck exam: Present: normal inspection, full ROM. Absent: tenderness, meningismus - Respiratory Respiratory exam: Present: normal lung sounds bilaterally. Absent: respiratory distress - Cardiovascular Cardiovascular Exam: Present: regular rate, normal rhythm, normal heart sounds. Absent: bradycardia, tachycardia, irregular rhythm, systolic murmur, diastolic murmur, rubs, gallop - GI/Abdominal GI/Abdominal exam: Present: soft. Absent: distended, tenderness, guarding, rebound, rigid, pulsatile mass - Extremities Exam Extremities exam: Present: normal inspection, full ROM, normal capillary refill , other (2+ pulses noted in the bilateral upper, lower extremities. Compartments soft. No long bony tenderness. The pelvis is stable.). Absent: tenderness, pedal edema, joint swelling, calf tenderness - Back Exam Back exam: Present: normal inspection, full ROM. Absent: tenderness, CVA tenderness (R), paraspinal tenderness, vertebral tenderness - Neurological Exam Neurological exam: Present: alert, oriented X3, CN II-XII intact, normal gait, other (Extraocular movements intact. Tongue midline. No facial droop. Facial sensation intact to light touch in the V1, V2, V3 distribution bilaterally. 5 and 5 strength in 4 extremities.. Sensation is intact to light touch in 4 extremities.). Absent: motor sensory deficit - Psychiatric Psychiatric exam: Present: anxious - Skin Skin exam: Present: warm, dry, intact, normal color. Absent: rash ED Course Vital Signs 05/12/18 05/12/18 05/12/18 17:58 21:14 21:15 Temperature 99.2 F Pulse Rate 89 79 85 Respiratory 18 18 Rate Blood Pressure 133/82 O2 Sat by Pulse 95 95 Oximetry 05/12/18 05/12/18 05/12/18 21:20 21:31 21:45 Temperature Pulse Rate 82 94 H Respiratory 18 9 L 18 Rate Blood Pressure 121/70 121/70 O2 Sat by Pulse 99 100 Oximetry - Reevaluation(s) Reevaluation #1: 05/12/18 21:27 Differential diagnosis, including but not limited to: Bronchitis, bronchiectasis , pneumonia, pulmonary embolus, orthostasis, vagal event, structural cardiac disease, myocarditis, pericarditis, dehydration, ectopic Assessment and plan: 27-year-old female who reports that she is , with what I suspect to be the natural progression of bronchitis. She is afebrile with reassuring vital signs and is clinically sober, has a GCS of 15, with an NIH score of 0. Patient has given verbal and written informed consents to obtain 2 view chest x- ray and CT scan of the chest if necessary to exclude pulmonary embolus. Risks and benefits were described to the patient. At this point in time, the vascular lab is not open, and we cannot obtain a lower extremity DVT study. We can obtain a pelvic and obstetrics ultrasound to confirm intrauterine and exclude ectopic. Patient will be treated with acetaminophen, IV fluids, albuterol, and lidocaine. Highly doubt myocarditis, pericarditis given lack of tachycardia, lack of fever , and normal EKG. Given duration of symptoms, patient at low risk for major adverse cardiac event. Symptoms have been present for greater than 8 hours, therefore asked for the [employer] clinical policy, myocardial infarction may be excluded with 1 set of cardiac enzymes. Reevaluation #2: 05/12/18 22:03 Patient is feeling much improved. She reports her symptoms are dramatically improved after albuterol, acetaminophen and lidocaine. Breath sounds remain clear. D-dimer is negative. Troponin is negative. Ultrasound is pending. Reevaluation #3: 05/12/18 23:10 Patient continues to feel improved. Resting comfortably and in no distress. 8 week, 3 day intrauterine is confirmed, patient Rh+. Patient will be treated as presumed bronchitis, and she is given appropriate counseling and expectant management precautions. ED Medical Decision Making - Lab Data Result diagrams: 05/12/18 20:55 05/12/18 20:55 Vital Signs 05/12/18 05/12/18 17:58 21:20 Temperature 99.2 F Pulse Rate 89 Respiratory 18 18 Rate Blood Pressure 133/82 O2 Sat by Pulse 95 Oximetry Lab Results 05/12/18 05/12/18 Range/Units 20:55 20:55 WBC 7.0 (4.5-11.0) K/mm3 RBC 4.06 (3.65-5.03) M/mm3 Hgb 12.2 (10.1-14.3) gm/dl Hct 34.8 (30.3-42.9) % MCV 86 (79-97) fl MCH 30 (28-32) pg MCHC 35 H (30-34) % RDW 13.1 L (13.2-15.2) % Plt Count 190 (140-440) K/mm3 Blood Type A POSITIVE - EKG Data 05/12/18 21:29 Sinus, 71 bpm, normal axis, normal intervals, this is not a STEMI. Unchanged from prior EKG from May 05. - Radiology Data Radiology results: report reviewed, image reviewed X-ray the chest is negative for acute disease Critical care attestation.: If time is entered above; I have spent that time in minutes in the direct care of this critically ill patient, excluding procedure time. ED Disposition Clinical Impression: Bronchitis Disposition: DC-01 TO HOME OR SELFCARE Is pt being admited?: No Does the pt Need Aspirin: No Condition: Good Instructions: Acute Bronchitis (ED) Additional Instructions: Symptoms most likely coming from bronchitis. Symptoms of bronchitis typically lasts 4-6 weeks. Drink plenty of fluids, use vaporizer or humidifier as often as as needed for symptomatic care, support, gargle with salt water or hot water as needed for symptom relief, and use nasal saline spray, or a neti pot, which can be purchased [id number], as often as as needed for symptom relief. 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 Return to the ER right away with new pain, worsened pain, migration of pain, projectile vomiting, change in mental status, confusion, inability to tolerate liquid feeds. Referrals: [facility] [Provider Group] - 3-5 Days
[2018-05-12 21:09] LABS: Hematocrit 34.8 % (30.3-42.9); Hemoglobin 12.2 gm/dl (10.1-14.3); Mean Corpuscular HGB Conc 35 % (30-34); Mean Corpuscular Hemoglobin 30 pg (28-32); Mean Corpuscular Volume 86 fl (79-97); Platelet Count 190 K/mm3 (140-440); Red Blood Count 4.06 M/mm3 (3.65-5.03); Red Cell Distribution Width 13.1 % (13.2-15.2)
--- NOTE | 2018-05-12 21:18 | XRay Report ---
FINAL REPORT PROCEDURE: XR CHEST ROUTINE 2V TECHNIQUE: PA and lateral chest radiographs were obtained. CPT 51686 HISTORY: cough, hemoptysis, near syncope COMPARISON: 09/17/2016 FINDINGS: Heart: Normal. Mediastinum/Vessels: Normal. Lungs/Pleural space: Normal. Bony thorax: No acute osseous abnormality. Other: IMPRESSION: Normal examination.
[2018-05-12 21:30] LABS: Alanine Aminotransferase 26 units/L (7-56); Albumin 4.3 g/dL (3.9-5); BUN/Creatinine Ratio 18; Blood Urea Nitrogen 7 mg/dL (7-17); Calcium 9.7 mg/dL (8.4-10.2); Hemolysis Index 8
[2018-05-12 21:38] LABS: INR 0.95 (0.87-1.13)
[2018-05-12 21:57] VITALS: BP 121/70
--- NOTE | 2018-05-12 23:08 | Ultrasound Report ---
FINAL REPORT PROCEDURE: US OB TRANSVAGINAL TECHNIQUE: Real-time transvaginal sonography of the uterus, placenta, amniotic fluid, adnexa, and fetus was performed with image documentation. Measurements were obtained to determine age/size. M-mode Doppler was used to document heartbeat. CPT 57807 HISTORY: pregnanct cough cramp COMPARISON: No prior studies are available for comparison. FINDINGS: CRL: 19mm, which corresponds to a gestational age of: 8weeks, 3 days. Yolk Sac: Normal. Embryonic Cardiac Activity: 172 beats per minute, regular Gestational Sac: Normal. Right Ovary: Normal. Left Ovary: Normal. Estimated delivery date: 12/19/2018 IMPRESSION: 1. Single living intrauterine gestation at approximately 8 weeks and 3 days 2. EDC by US 12/19/2018.
--- NOTE | 2018-05-12 23:09 | Ultrasound Report ---
FINAL REPORT PROCEDURE: US OB < = 14 WEEKS FETUS TECHNIQUE: Real-time transabdominal sonography of the uterus, placenta, amniotic fluid, adnexa, and fetus was performed with image documentation. Measurements were obtained to determine age/size. M-mode Doppler was used to document heartbeat. CPT 09384 HISTORY: pregnanct cough cramp COMPARISON: No prior studies are available for comparison. FINDINGS: CRL: 19mm, which corresponds to a gestational age of: 8weeks, 3 days. Yolk Sac: Normal. Embryonic Cardiac Activity: 172 beats per minute, regular Gestational Sac: Normal. Right Ovary: Normal. Left Ovary: Normal. Estimated delivery date: 12/19/2018 IMPRESSION: 1. Single living intrauterine gestation at approximately 8 weeks and 3 days 2. EDC by US 12/19/2018.
== END 2018-05-12 23:38 | disposition home or self-care (01) ==
LOC: ED 17:51
DX: O99.511 Diseases of the respiratory system complicating pregnancy, first trimester (principal); J40 Bronchitis, not specified as acute or chronic; R56.9 Unspecified convulsions; Z91.013 Allergy to seafood; Z3A.01 Less than 8 weeks gestation of pregnancy
CPT/HCPCS: 36415; 71046; 76801; 76817; 80053; 84484; 84702; 85027; 85379; 85610; 86850; 86900; 86901; 93005; 93010; 94640; 96360; 96361; 99285; J7030

== ENCOUNTER 2018-11-09 17:17 | Observation (INO) | payer MEDICAID ==
--- NOTE | 2018-11-09 21:04 | Event Note ---
Date: 11/09/18 Verbal order given to RN to observe patient for a total of 2hours, start IVF hydration and send a urine, instead RN sent patient walking for 2hours. Order given to Jesusita RN to place patient back in bed and check cervix. RN unable to locate patient at this time
[2018-11-09] MEDS ORDERED: LACTATED RINGERS 1,000 ML ONE (21:33)
[2018-11-09] MEDS ORDERED: LACTATED RINGERS 1,000 ML IV ONE (22:25)
[2018-11-09] MEDS ORDERED: BRETHINE SUB-Q PRN (22:56)
[2018-11-09] MEDS ORDERED: ZOFRAN IV PRN (22:56)
[2018-11-09] MEDS ORDERED: SUBLIMAZE IV PRN (22:56)
[2018-11-09] MEDS ORDERED: MINERAL OIL PO PRN (22:56)
[2018-11-09] MEDS ORDERED: XYLOCAINE 2% INFILTRATI ONE (22:56)
[2018-11-09] MEDS ORDERED: BRETHINE IVP PRN (22:56)
[2018-11-09] MEDS ORDERED: PITOCin/NS 20 UNIT/1000ML DRIP 20 UNITS/1,000 ML BAG IV SCH (23:00)
[2018-11-09] MEDS ORDERED: LACTATED RINGERS 1,000 ML IV SCH (23:00)
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
[2018-11-10 00:26] LABS: Hematocrit 30.8 % (30.3-42.9); Hemoglobin 10.4 gm/dl (10.1-14.3); Mean Corpuscular HGB Conc 34 % (30-34); Mean Corpuscular Hemoglobin 28 pg (28-32); Mean Corpuscular Volume 84 fl (79-97); Platelet Count 158 K/mm3 (140-440); Red Blood Count 3.67 M/mm3 (3.65-5.03); Red Cell Distribution Width 15.9 % (13.2-15.2)
[2018-11-10 06:12] VITALS: BP 115/57
--- NOTE | 2018-11-10 06:12 | Discharge Summary ---
Providers - Providers Date of Admission: 11/09/18 22:54 Date of discharge: 11/10/18 Attending physician: LOGAN BOWEN Primary care physician: LOGAN BOWEN Hospitalization Reason for admission: other (latent phase labor) Procedure: other (therapeutic rest) Hospital course: patient had persistent contractions that resolved with IVF and bed rest, no cervical change overnight , FHT's cat 1, UC irreg rare, will allow home Condition at discharge: Good Disposition: DC-01 TO HOME OR SELFCARE - Discharge Diagnoses (1) 37 weeks gestation of Status: Resolved (2) Insufficient care in third trimester Status: Resolved (3) Prolonged latent phase of labor Status: Acute Plan - Provider Discharge Summary Activity: other Diet: routine Instructions: routine Additional instructions: [] Smoking cessation referral if applicable(refer to patient education folder for contact #) [] Refer to [facility]'s [facility] Booklet Call your doctor immediately for: * Fever > 100.5 * Heavy vaginal bleeding ( >1 pad per hour) * Severe persistent headache * Shortness of breath * Reddened, hot, painful area to leg or breast * Drainage or odor from incision. * Keep incision clean and dry at all times and follow doctor's instructions regarding bathing/showering - Follow up plan Follow up: LOGAN BOWEN MD [Primary Care Provider] - (Keep appointment in office today)
== END 2018-11-10 06:00 | disposition home or self-care (01) ==
LOC: TRG 17:17 → LD 22:54 → TRG 22:54 → INTOOBSV 22:54
PROVIDERS: ADMIT Obstetrics & Gynecology; ATTEND Obstetrics & Gynecology
DX: O62.9 Abnormality of forces of labor, unspecified (principal); O63.9 Long labor, unspecified; O09.33 Supervision of pregnancy with insufficient antenatal care, third trimester; Z3A.37 37 weeks gestation of pregnancy; Z91.013 Allergy to seafood; Z79.899 Other long term (current) drug therapy
CPT/HCPCS: 36415; 85027; 86592; 86850; 86900; 86901; G0378; J7120; 96365; 96366

== ENCOUNTER 2018-11-14 18:44 | Outpatient (CLI) | payer MEDICAID ==
[2018-11-14] MEDS ORDERED: REGLAN IV ONE ×2 (20:26→20:28)
[2018-11-14 21:25] VITALS: BP 109/56
== END 2018-11-14 21:42 | disposition home or self-care (01) ==
LOC: TRG 18:44
PROVIDERS: ATTEND Obstetrics & Gynecology
DX: O62.9 Abnormality of forces of labor, unspecified (principal); Z3A.37 37 weeks gestation of pregnancy
CPT/HCPCS: 59025; 96374; J2765; 96360

== ENCOUNTER 2018-11-27 16:48 | Outpatient (CLI) | payer MEDICAID ==
[2018-11-27] MEDS ORDERED: LACTATED RINGERS 1,000 ML ONE (18:21)
--- NOTE | 2018-11-27 20:02 | Ultrasound Report ---
PROCEDURE: Limited obstetrical ultrasound. TECHNIQUE: Real-time limited sonographic examination was performed for evaluation of each fetus with image documentation (1 or more fetuses). HISTORY: Evaluate amniotic fluid index. COMPARISONS: The mid obstetrical ultrasound 05/12/2018. FINDINGS: There is a single intrauterine fetus in cephalic presentation. Cardiac activity is documented at 161 bpm. The amniotic fluid volume appears normal. The amniotic fluid index measures 18.0 cm. IMPRESSION: Viable fetus in cephalic presentation. Amniotic fluid index of 18.0 cm. This document is electronically signed by Itz Gaitan MD., November 27 2018 08:00:36 PM ET
[2018-11-28 19:23] VITALS: BP 125/66
== END 2018-11-27 19:45 | disposition home or self-care (01) ==
LOC: TRG 16:48
PROVIDERS: ATTEND Obstetrics & Gynecology
DX: O42.92 Full-term premature rupture of membranes, unspecified as to length of time between rupture and onset of labor (principal); O47.1 False labor at or after 37 completed weeks of gestation; Z3A.39 39 weeks gestation of pregnancy
CPT/HCPCS: 59025; 76815; J7120

== ENCOUNTER 2018-12-10 20:17 | Inpatient (IN) | payer MEDICAID ==
[2018-12-10] MEDS ORDERED: CERVIDIL VG ONE (23:31)
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
[2018-12-10] MEDS ORDERED: LACTATED RINGERS 1,000 ML IV SCH (23:45)
[2018-12-11] MEDS ORDERED: BRETHINE SUB-Q PRN (00:01)
[2018-12-11] MEDS ORDERED: MINERAL OIL PO PRN (00:01)
[2018-12-11] MEDS ORDERED: XYLOCAINE 2% INFILTRATI ONE (00:01)
[2018-12-11] MEDS ORDERED: BRETHINE IVP PRN (00:01)
--- NOTE | 2018-12-11 00:33 | Progress Note ---
Assessment and Plan - Patient Problems (1) 41 weeks gestation of Current Visit: Yes Status: Acute Plan to address problem: US on 12/08/2018 revealed EFW 9#11oz. She feels this baby is larger than her previous children at . Discussed possible shoulder dystocia. She was informed at this gestational age and with her body habitus it is difficult to accurately determine adequacy of her pelvis as well as weight. Explained there could be a 1-2# discrepancy in the estimated weight with ultrasound. Complications associated with shoulder dystocia were extensively explained, including but now limited to: Permanent or temporary injury to the infant's extremities, permanent brain damage, or . She was also informed she may require an incision or a laceration may occur involving her vagina and/or perineum that may also involve the rectum. The incision may be performed to facilitate delivery of the . This incision/laceration may lead to future complications such as but not limited to, painful intercourse, rectovaginal fistula or fecal incontinence, multiple surgeries or other complications. Risks associated with delivery were discussed, including but not limited to: Bleeding that may require blood transfusion and its complications or hysterectomy, infection that may also require hysterectomy and may be fatal, injury to her bowel may require temporary or permanent colostomy, injury to her bladder that may also be temporary or permanent complications. She was also informed that once she's had a delivery she may require subsequent delivery with all future pregnancies. Questions were encouraged and answered. Patient voiced understanding. She is undecided at this time. Will proceed with admission and hold cervidil for now. ACOG FAQ re: C/S. Info re: shoulder dystocia given to her from [email or web address] (2) Insufficient care in third trimester Onset Date: 12/02/17 Current Visit: No Status: Resolved (3) BMI 40.0-44.9, adult Current Visit: Yes Status: Acute (4) Sterilization Current Visit: Yes Status: Acute Plan to address problem: Consents on chart and scanned into the chart Subjective - Subjective Date of service: 12/11/18 Principal diagnosis: IUP@ 41 3/7 wga Patient reports: movement normal Objective - Vital Signs Vital Signs: Vital Signs - 12hr 12/11/18 12/11/18 12/11/18 00:16 00:19 00:24 Pulse Rate 83 83 85 Blood Pressure 130/75 O2 Sat by Pulse 97 97 Oximetry 12/11/18 00:29 Pulse Rate 89 Blood Pressure O2 Sat by Pulse 96 Oximetry - Exam Lungs: Normal air movement Abdomen: Present: soft, other (obese) Vulva: both: normal Uterus: Present: fundal height above umbilicus. Absent: tenderness FHR: category 1 Uterine Contraction Monitor Mode: External Cervical Dilatation: 1.5 Cervical Effacement Percentage: 30 station: -4 Uterine Contraction Pattern: Absent Extremities: edema (trace) Deep Tendon Reflex Grade: Normal +2
[2018-12-11] MEDS ORDERED: LACTATED RINGERS 1,000 ML IV SCH ×2 (01:00→07:00)
[2018-12-11] MEDS ORDERED: PITOCin/NS 20 UNIT/1000ML DRIP 20 UNITS/1,000 ML BAG IV SCH ×2 (01:00→07:00)
--- NOTE | 2018-12-11 01:06 | Ultrasound Report ---
PROCEDURE: US OB LIMITED TECHNIQUE: Obstetrical ultrasound for position HISTORY: well being COMPARISONS: November 27, 2018 FINDINGS: There is a single fetus in a vertex presentation. heart rate 1 50 bpm. No other measurements ar e obtained. IMPRESSION: There is a single fetus in a vertex presentation.. This document is electronically signed by Gaye Ramos DO., December 11 2018 01:04:04 AM ET
[2018-12-11 01:11] LABS: Hematocrit 29.8 % (30.3-42.9); Hemoglobin 9.9 gm/dl (10.1-14.3); Mean Corpuscular HGB Conc 33 % (30-34); Mean Corpuscular Volume 84 fl (79-97); Platelet Count 145 K/mm3 (140-440); Red Blood Count 3.53 M/mm3 (3.65-5.03); Red Cell Distribution Width 16.4 % (13.2-15.2)
[2018-12-11] MEDS ORDERED: AMBIEN PO PRN (01:56)
--- NOTE | 2018-12-11 05:32 | Event Note ---
Date: 12/11/18 (Pt voicing desire for c/s) Pt resting No c/o voiced No questions regarding c/s. "I'm just ready." VSS FHR Cat 1 movement noted by examiner. Pt is aware to be NPO IVFs started 125cc/hr.
[2018-12-11] MEDS ORDERED: REGLAN IV ONE (06:54)
[2018-12-11] MEDS ORDERED: BICITRA PO ONE (06:54)
[2018-12-11] MEDS ORDERED: PEPCID IV ONE ×2 (06:54→11:26)
[2018-12-11] MEDS ORDERED: ANCEF/STERILE WATER 2 GM/20 ML 2 GM/20 ML SYRINGE IV NR (07:00)
[2018-12-11] MEDS ORDERED: ZOFRAN IV PRN ×2 (07:29→13:29)
[2018-12-11] MEDS ORDERED: PHENERGAN PO PRN ×2 (07:29→13:29)
[2018-12-11] MEDS ORDERED: DILAUDID IV PRN ×3 (07:29→13:29)
[2018-12-11] MEDS ORDERED: NARCAN 0.4 MG/1 ML IV PRN ×2 (07:29→13:29)
[2018-12-11] MEDS ORDERED: PHENERGAN PR PRN ×2 (07:29→13:29)
--- NOTE | 2018-12-11 07:31 | Anesthesia Day of Surgery ---
Anesthesia Day of Surgery - Day of Surgery Patient Examined: Yes Patient H&P Reviewed: Yes Patient is NPO: Yes Beta Blockers: No Cardiac Clearance: No Pulmonary Clearance: No Esteban's Test: N/A
--- NOTE | 2018-12-11 07:34 | Post Anesthesia Evaluation ---
- Post Anesthesia Evaluation Patient Participated: Yes Airway Patent: Yes Stable Respiratory Function: Yes Nausea/Vomiting: No Temp > 96.8F: Yes Pain Manageable: Yes Adequeate Hydration: Yes Anesthesia Complications: No Block Receding Appropriately: Yes Patient on Ventilator: No
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
[2018-12-11] MEDS ORDERED: SODIUM CHLORIDE FLUSH SYRINGE 10 ML IV NR ×2 (08:00→14:00)
[2018-12-11] MEDS ORDERED: BICITRA ONE (11:26)
[2018-12-11] MEDS ORDERED: REGLAN ONE (11:26)
[2018-12-11] MEDS ORDERED: ANCEF/STERILE WATER 2 GM/20 ML IV ONE (13:56)
[2018-12-11] MEDS ORDERED: NEO SYNEPHRINE ONE (14:09)
[2018-12-11] MEDS ORDERED: TORADOL ONE (14:21)
--- NOTE | 2018-12-11 15:09 | Operative Report ---
Operative Report Operative Report: Date of procedure: 12/11/2018 Pre-operative diagnosis: 41 3/7 weeks Desires for sterilization Suspected macrosomia Post-operative diagnosis: Same Procedure name(s): Primary low transverse section via Pfannenstiel skin incision Bilateral tubal ligation via modified [place] method Surgeon: Dr. Perez Bottle Assembler: SIA Anesthesia: Epidural EBL: 950 mL Urine output: 100 mL of clear urine out at the end of the procedure Fluids: 1 L Findings: Live born male weight 10 lbs. 2 oz. Apgars of 8 and 9 at one and 5 minutes Grossly normal fallopian tubes and ovaries bilaterally Indications: Patient presented for induction of labor with estimated weight of 9 lbs. 11 oz. Patient desired to have primary section due to the size of the baby. All risks benefits and alternatives were discussed with the patient. Patient also desired to have primary sterilization. Again all risks benefits and alternatives were discussed with the patient. Consents were signed and placed on the chart. Procedure: Patient was taking to the operating room. Patient was then prepped and draped in sterile fashion after anesthesia was found to be adequate. A low transverse skin incision was made with the scalpel and carried down to the underlying layer of fascia with the Bovie. The fascia was then incised in the midline and this incision was extended bilaterally with the Bovie. The superior aspect of the fascia was grasped with Lokesh clamps tented upward and dissected off of the anterior rectus muscles with the scalpel. In similar fashion the inferior aspect of the fascia was grasped with Lokesh clamps tented upward and dissected off of the anterior rectus muscles. The rectus muscles were then bluntly divided in the midline. The peritoneum was identified and entered into sharply. The bladder blade was placed. Terrance retractor was placed. The bladder flap was created using the Metzenbaum scissors. The bladder blade was replaced. A lower transverse uterine incision was made with the scalpel and extended bilaterally with the bandage scissors. Artificial rupture of membranes was performed yielding clear amniotic fluid. The infant's head was then delivered atraumatically. The anterior shoulder and rest of delivered without difficulty. The umbilical cord was clamped x2. The cord was cut. The infant was then placed in sterile bassinet. The cord blood was collected. The placenta was manually extracted in its entirety. The uterus was exteriorized and cleared of all clots and debris. The uterine incision was closed using 0 Vicryl in a running locking fashion. A second imbricating layer of the same suture was then created. The posterior cul-de-sac was copiously irrigated. Attention was then turned to the right fallopian tube and which a knuckle of tube was grasp with the Josefina suture ligated and transected with segment of right tube being passed off to pathology. This was repeated on the left side with a portion of left tube being passed off to pathology. Excellent hemostasis was noted. The uterus was returned to the abdomen. The gutters were also irrigated. The anterior rectus muscles were reapproximated using 3-0 Vicryl. The anterior rectus fascia was reapproximated using 0 Vicryl in a running fashion. The subcuticular fat was reapproximated using 2-0 Vicryl in a running fashion. The skin was reapproximated with 4-0 Monocryl in a subcuticular stitch. The patient tolerated the procedure well. Sponge lap and needle counts were all correct x3. Patient was taken to the recovery room awake and in stable condition.
[2018-12-11] MEDS ORDERED: LANSINOH TP PRN (15:10)
[2018-12-11] MEDS ORDERED: TUCKS PAD TP PRN (15:10)
[2018-12-11] MEDS ORDERED: D5LR 1,000 ML IV SCH (16:00)
[2018-12-11] MEDS ORDERED: MORPHINE PCA 30MG/30ML IV SCH (16:00)
[2018-12-11] MEDS: TORADOL IV PRN (19:27)
[2018-12-11] MEDS ORDERED: ANCEF/NS 1 GM/50 ML 1 GM/50 ML BAG IV SCH (20:00)
[2018-12-12] MEDS: TORADOL IV PRN (05:14)
[2018-12-12 06:28] LABS: Hematocrit 24.4 % (30.3-42.9); Hemoglobin 8.1 gm/dl (10.1-14.3)
--- NOTE | 2018-12-12 07:48 | Progress Note ---
Assessment and Plan Pt doing well for <24h postop: ambulating to bathroom, trying to void since cath removed this am. expectation of pain after surgery reviewed. Will transition to PO pain meds, VSSAF, H&H 8.1/24.4, FE increased to BID. Dressing D&I. Continue postop pathway. Encouraged . - Patient Problems (1) delivery delivered Current Visit: Yes Status: Acute Subjective - Subjective Date of service: 12/12/18 Principal diagnosis: Postop day #1 s/p primary c/s Patient reports: appetite normal, pain well controlled, ambulating normally, no voiding normally (Pt has not voided since cath removed this AM), no dizzy ambulation, no flatus, no nauseated : doing well, nursing well Objective - Vital Signs Latest vital signs: Vital Signs Temp Pulse Resp BP BP BP Pulse Ox 12/12/18 06:22 14 12/12/18 05:44 14 12/12/18 05:14 16 12/12/18 04:39 98.7 F 18 123/69 12/12/18 04:37 98.7 F 83 18 123/69 95 12/12/18 04:22 16 12/12/18 02:22 16 12/12/18 00:22 16 12/12/18 00:00 98.8 F 73 18 126/69 96 12/11/18 22:22 16 12/11/18 20:22 16 12/11/18 20:09 99.1 F 14 128/67 12/11/18 20:07 99.1 F 68 14 128/67 97 12/11/18 19:27 16 12/11/18 16:43 97.7 F 70 18 113/56 100 12/11/18 16:15 98.8 F 68 16 120/60 12/11/18 16:00 72 16 121/65 12/11/18 15:45 84 121/70 12/11/18 15:30 84 103/41 12/11/18 15:25 80 118/68 12/11/18 15:20 68 123/69 12/11/18 15:17 99.7 F H 88 16 77/45 12/11/18 11:58 79 127/67 Intake and Output 12/11/18 12/11/18 12/12/18 15:59 23:59 07:59 Intake Total 1700 500 260 Output Total 200 30 Balance 1500 470 260 Intake: IV 1700 500 Intake, Free Water 260 Output: Urine 200 30 Other: Estimated Blood Loss 950 - Exam Breasts: Present: normal, Cardiovascular: Present: Regular rate Lungs: Present: Clear to auscultation, Normal air movement Abdomen: Present: normal appearance, soft Vulva: both: normal Uterus: Present: normal, fundal height at umbilicus Extremities: Present: normal Deep Tendon Reflex Grade: Normal +2 Incision: Present: normal, dry, dressed - Labs Labs: Abnormal lab results 12/12/18 Range/Units 05:52 Hgb 8.1 L (10.1-14.3) gm/dl Hct 24.4 L (30.3-42.9) %
[2018-12-12] MEDS ORDERED: FEOSOL PO SCH (10:00)
[2018-12-12] MEDS: IBUPROFEN PO PRN ×2 (10:54→18:01)
[2018-12-12] MEDS: FEOSOL PO SCH ×2 (10:54→23:03)
[2018-12-12] MEDS: NORCO 5/325 PO PRN ×4 (10:55→23:02)
[2018-12-12] MEDS ORDERED: BOOSTRIX IM ONE (15:11)
[2018-12-12] MEDS ORDERED: MILK OF MAGNESIA PO PRN (23:33)
[2018-12-12] MEDS ORDERED: MYLICON PO PRN (23:35)
[2018-12-13] MEDS: IBUPROFEN PO PRN ×3 (01:16→16:45)
[2018-12-13] MEDS: NORCO 5/325 PO PRN ×3 (08:32→16:44)
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
[2018-12-13] MEDS: FEOSOL PO SCH ×2 (10:30→23:28)
[2018-12-14] MEDS: FEOSOL PO SCH (10:34)
[2018-12-14] MEDS: IBUPROFEN PO PRN (10:34)
--- NOTE | 2018-12-14 10:54 | Discharge Summary ---
Providers - Providers Date of Admission: 12/10/18 20:17 Date of discharge: 12/14/18 Attending physician: LOGAN BOWEN Primary care physician: LGOAN BOWEN Hospitalization Reason for admission: section, induction of labor (Declined IOL) Delivery: Procedure: bilateral tubal ligation, primary low transverse Episiotomy: none Laceration: none Incision: normal, dry, intact Other procedures: none complications: none Discharge diagnosis: IUP at term delivered baby: male (declined circ) Hospital course: Uncomplicated C/S. Macrosomia. 10-1. Pt resting in bed. VSS. FF below umbilicus. Lochia scant. Incision D&I. H/H stable asymptomatic. Doing well s/p C/S. P: D/C today with instructions. RTO 1wk incision check. Rx provided at D/C. Condition at discharge: Good Disposition: DC- TO HOME OR SELFCARE - Discharge Diagnoses (1) delivery delivered Status: Acute Comment: RTO 1wk postop Plan - Discharge Medications Prescriptions: Docusate Sodium [Colace] 100 mg PO BID PRN #60 capsule PRN Reason: Constipation Lidocain2.5%/Prilocai2.5% [Emla] 2 gm TP ONCE #1 tube Ferrous Sulfate [Feosol 325 MG tab] 325 mg PO BID #60 tablet Ibuprofen 800 mg PO Q6HR #30 tablet oxyCODONE /ACETAMINOPHEN [Percocet 5/325] 1 tab PO Q4HR #30 tab - Provider Discharge Summary Activity: routine, no sex for 6 weeks, no heavy lifting 4 weeks, no strenuous exercise Diet: routine Instructions: routine Additional instructions: [] Smoking cessation referral if applicable(refer to patient education folder for contact #) [] Refer to [facility] Booklet Call your doctor immediately for: * Fever > 100.5 * Heavy vaginal bleeding ( >1 pad per hour) * Severe persistent headache * Shortness of breath * Reddened, hot, painful area to leg or breast * Drainage or odor from incision. * Keep incision clean and dry at all times and follow doctor's instructions regarding bathing/showering - Follow up plan Follow up: LOGAN BOWEN MD [Primary Care Provider] - 7 Days (Congradulations! Please call [phone] to schedule your postoperative visit in one week. Take medications as prescibed. Call with concerns. )
[2018-12-14 11:44] VITALS: BP 135/79
== END 2018-12-14 12:40 | disposition home or self-care (01) | DRG 765 ==
LOC: LD 20:17 → OB 12-11 16:48
PROVIDERS: ADMIT Obstetrics & Gynecology; ATTEND Obstetrics & Gynecology
PROC: 10D00Z1 Extraction of Products of Conception, Low, Open Approach (ICD-10-PCS; principal; 2018-12-11)
PROC: 0UB70ZZ Excision of Bilateral Fallopian Tubes, Open Approach (ICD-10-PCS; 2018-12-11)
DX: O36.63X0 Maternal care for excessive fetal growth, third trimester, not applicable or unspecified (principal); D62 Acute posthemorrhagic anemia; Z3A.41 41 weeks gestation of pregnancy; Z37.0 Single live birth; O99.214 Obesity complicating childbirth; E66.9 Obesity, unspecified; O99.02 Anemia complicating childbirth
CPT/HCPCS: 36415; 76815; 85014; 85018; 85027; 86592; 86850; 86900; 86901; 88302; G0378; A6250; J0690; J1885; J2270; J2370; J2590; J2765; J7120; J7121

== ENCOUNTER 2019-07-05 05:33 | Emergency (ER) | payer MEDICAID ==
[2019-07-05] MEDS ORDERED: dexAMETHasone 20 MG/5 ML VIAL IV ONE (05:45)
[2019-07-05] MEDS ORDERED: FAMOTIDINE 20 MG/2 ML INJ IV ONE ×2 (05:45→05:48)
[2019-07-05] MEDS ORDERED: dexAMETHasone 20 MG/5 ML VIAL ONE (05:47)
--- NOTE | 2019-07-05 06:21 | Emergency Department Report ---
ED General Adult HPI - General Chief complaint: Allergic Reaction Stated complaint: ALLERGIC REACTION Time Seen by Provider: 07/05/19 06:08 Source: EMS Mode of arrival: Stretcher Limitations: No Limitations - History of Present Illness Initial comments: Irma is a very pleasant 28-year-old female who presents with swelling in the back of her throat. 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 She did not eat any of these foods. She woke up with difficulty swallowing and talking. She came by EMS. She denies any itching. She currently does not have any lip or tongue swelling. She received 50 mg of IV Benadryl in route per EMS. -: Gradual, This morning Location: mouth Radiation: non-radiation Quality: constant Consistency: constant Improves with: none Associated Symptoms: denies other symptoms - Related Data Previous Rx's Medication Instructions Recorded Last Taken Type Ibuprofen [Motrin 800 MG tab] 800 mg PO Q8HR PRN #30 tablet 01/14/16 Unknown Rx Sulfamethoxazole/Trimethoprim 1 each PO BID #20 tablet 01/14/16 Unknown Rx [Bactrim DS TAB] cephALEXin [Keflex] 500 mg PO Q12HR #20 cap 01/14/16 Unknown Rx Promethazine [Phenergan TAB] 25 mg PO Q6HR PRN #20 tab 09/17/16 2 Weeks Ago Rx ~09/14/17 25 Ferrous Sulfate [Feosol 325 MG tab] 325 mg PO BID #60 tablet 12/03/17 Unknown Rx Ibuprofen [Motrin 600 MG tab] 600 mg PO Q6H #30 tablet 12/03/17 Unknown Rx Vit-Fe Fumar-FA [ 1 each PO QDAY #30 tablet 12/03/17 Unknown Rx Vitamin] Amoxicillin [Amoxicillin TAB] 875 mg PO BID 10 Days #20 tablet 05/06/18 Unknown Rx Cetirizine HCl [ZyrTEC] 10 mg PO QDAY #20 capsule 05/06/18 Unknown Rx Acetaminophen [Tylenol Arthritis] 650 mg PO Q6HR PRN #30 tablet.er 05/12/18 Unknown Rx Albuterol Sulfate [Proair 90 mcg IH Q4HR PRN #2 aer.pow.ba 05/12/18 Unknown Rx Respiclick] Doxylamine Succinate/Vit B6 1 each PO QHS PRN #30 tablet. 05/12/18 Unknown Rx [Jocelyn Macario 10-10 mg Tablet] Vit Calc,Iron,Folic 1 each PO QDAY #30 tablet 05/12/18 Unknown Rx [ Vitamins] Docusate Sodium [Colace] 100 mg PO BID PRN #60 capsule 12/11/18 Unknown Rx Ferrous Sulfate [Feosol 325 MG tab] 325 mg PO BID #60 tablet 12/11/18 Unknown Rx Ibuprofen [Ibuprofen 800] 800 mg PO Q6HR #30 tablet 12/11/18 Unknown Rx Lidocain2.5%/Prilocai2.5% [Emla] 2 gm TP ONCE #1 tube 12/11/18 Unknown Rx oxyCODONE /ACETAMINOPHEN [Percocet 1 tab PO Q4HR #30 tab 12/11/18 Unknown Rx 5/325] EPINEPHrine [Epipen] 0.3 mg IJ ONCE PRN #1 auto.injct 07/05/19 Unknown Rx Famotidine [Pepcid] 20 mg PO BID 3 Days #6 tablet 07/05/19 Unknown Rx diphenhydrAMINE [Benadryl CAP] 25 mg PO TID 3 Days #9 capsule 07/05/19 Unknown Rx predniSONE [Deltasone] 3 tab PO QDAY 3 Days #9 tab 07/05/19 Unknown Rx Allergies Allergy/AdvReac Type Severity Reaction Status Date / Time seafood Allergy Swelling Uncoded 01/10/18 13:24 ED Review of Systems ROS: Stated complaint: ALLERGIC REACTION Other details as noted in HPI Comment: All other systems reviewed and negative Constitutional: denies: fever, malaise ENT: denies: ear pain, throat pain, dental pain Respiratory: denies: cough, shortness of breath Cardiovascular: denies: chest pain Gastrointestinal: denies: nausea, vomiting Skin: denies: rash, lesions ED Past Medical Hx - Past Medical History Previous Medical History?: Yes Hx Hypertension: No Hx Heart Attack/AMI: No Hx Congestive Heart Failure: No Hx Diabetes: No Hx Deep Vein Thrombosis: No Hx Liver Disease: No Hx Renal Disease: No Hx Sickle Cell Disease: No Hx Seizures: No Hx Asthma: No Hx COPD: No Hx HIV: No - Surgical History Past Surgical History?: Yes Hx Pacemaker: No Hx Internal Defibrillator: No Additional Surgical History: pelvis 07/27 - Social History Smoking Status: Never Smoker Substance Use Type: None Other Social History: 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 - Medications Home Medications: Home Medications Medication Instructions Recorded Confirmed Last Taken Type Ibuprofen [Motrin 800 MG tab] 800 mg PO Q8HR PRN #30 tablet 01/14/16 12/02/17 Unknown Rx Sulfamethoxazole/Trimethoprim 1 each PO BID #20 tablet 01/14/16 12/02/17 Unknown Rx [Bactrim DS TAB] cephALEXin [Keflex] 500 mg PO Q12HR #20 cap 01/14/16 12/02/17 Unknown Rx Promethazine [Phenergan TAB] 25 mg PO Q6HR PRN #20 tab 09/17/16 12/02/17 2 Weeks Ago Rx ~09/14/17 25 Ferrous Sulfate [Feosol 325 MG tab] 325 mg PO BID #60 tablet 12/03/17 Unknown Rx Ibuprofen [Motrin 600 MG tab] 600 mg PO Q6H #30 tablet 12/03/17 Unknown Rx Vit-Fe Fumar-FA [ 1 each PO QDAY #30 tablet 12/03/17 Unknown Rx Vitamin] Amoxicillin [Amoxicillin TAB] 875 mg PO BID 10 Days #20 tablet 05/06/18 Unknown Rx Cetirizine HCl [ZyrTEC] 10 mg PO QDAY #20 capsule 05/06/18 Unknown Rx Acetaminophen [Tylenol Arthritis] 650 mg PO Q6HR PRN #30 tablet.er 05/12/18 Unknown Rx Albuterol Sulfate [Proair 90 mcg IH Q4HR PRN #2 aer.pow.ba 05/12/18 Unknown Rx Respiclick] Doxylamine Succinate/Vit B6 1 each PO QHS PRN #30 tablet. 05/12/18 Unknown Rx [Jocelyn Macario 10-10 mg Tablet] Vit Calc,Iron,Folic 1 each PO QDAY #30 tablet 05/12/18 Unknown Rx [ Vitamins] Docusate Sodium [Colace] 100 mg PO BID PRN #60 capsule 12/11/18 Unknown Rx Ferrous Sulfate [Feosol 325 MG tab] 325 mg PO BID #60 tablet 12/11/18 Unknown Rx Ibuprofen [Ibuprofen 800] 800 mg PO Q6HR #30 tablet 12/11/18 Unknown Rx Lidocain2.5%/Prilocai2.5% [Emla] 2 gm TP ONCE #1 tube 12/11/18 Unknown Rx oxyCODONE /ACETAMINOPHEN [Percocet 1 tab PO Q4HR #30 tab 12/11/18 Unknown Rx 5/325] EPINEPHrine [Epipen] 0.3 mg IJ ONCE PRN #1 auto.injct 07/05/19 Unknown Rx Famotidine [Pepcid] 20 mg PO BID 3 Days #6 tablet 07/05/19 Unknown Rx diphenhydrAMINE [Benadryl CAP] 25 mg PO TID 3 Days #9 capsule 07/05/19 Unknown Rx predniSONE [Deltasone] 3 tab PO QDAY 3 Days #9 tab 07/05/19 Unknown Rx ED Physical Exam - General Limitations: No Limitations General appearance: alert, in no apparent distress, other (garbled voice, able to close mouth, calm) - Head Head exam: Present: atraumatic, normocephalic - Eye Eye exam: Present: normal appearance - ENT ENT exam: Present: other (large edematous uvula 2 cm in diameter without erythema or exudates) - Neck Neck exam: Present: normal inspection, full ROM - Respiratory Respiratory exam: Present: normal lung sounds bilaterally. Absent: respiratory distress, wheezes, rales, rhonchi - Cardiovascular Cardiovascular Exam: Present: regular rate, normal rhythm, normal heart sounds. Absent: systolic murmur, diastolic murmur, rubs, gallop - GI/Abdominal GI/Abdominal exam: Present: soft, normal bowel sounds. Absent: distended, tenderness, guarding, rebound - Extremities Exam Extremities exam: Present: normal inspection - Neurological Exam Neurological exam: Present: alert, oriented X3 - Psychiatric Psychiatric exam: Present: normal affect, normal mood - Skin Skin exam: Present: warm, dry, intact, normal color. 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 Upon discharge her uvula was normal size. Her voice is now normal. I have prescribed EpiPen, diphenhydramine, famotidine and prednisone. Referral to allergists provided Critical Care Time: Yes Critical care time in (mins) excluding proc time.: 40 Critical care attestation.: If time is entered above; I have spent that time in minutes in the direct care of this critically ill patient, excluding procedure time. 40 minutes of critical care time excluding procedures were used in the care of the patient. Patient required multiple assessments and interventions. I reviewed the electronic medical record. ED Disposition Clinical Impression: Uvular edema, Quincke's disease Disposition: DC- TO HOME OR SELFCARE Is pt being admited?: No Does the pt Need Aspirin: No Condition: Stable Instructions: Angioedema (ED) Prescriptions: diphenhydrAMINE [Benadryl CAP] 25 mg PO TID 3 Days #9 capsule predniSONE [Deltasone] 3 tab PO QDAY 3 Days #9 tab EPINEPHrine [Epipen] 0.3 mg IJ ONCE PRN #1 auto.injct PRN Reason: severe allergic reaction Famotidine [Pepcid] 20 mg PO BID 3 Days #6 tablet Referrals: LAURE DAY MD [Referring] - 3-5 Days MANJU TITUS MD [Referring] - 3-5 Days
[2019-07-05] MEDS ORDERED: EPINEPHrine/PF (1:1,000) 1 MG/1 ML INJ SUB-Q ONE (06:22)
[2019-07-05 10:21] VITALS: BP 135/76
== END 2019-07-05 09:20 | disposition home or self-care (01) ==
LOC: ED 05:33
DX: T78.3XXA Angioneurotic edema, initial encounter (principal); Z91.013 Allergy to seafood; Z79.899 Other long term (current) drug therapy; X58.XXXA Exposure to other specified factors, initial encounter
CPT/HCPCS: 96372; 96374; 96375; 99284; J0171; J1100

== ENCOUNTER 2022-03-03 09:29 | Emergency (ER) | payer MEDICAID | END 2022-03-03 09:34 | disposition left against medical advice (07) | LOC: ED 09:29 | DX: R06.02 Shortness of breath (principal); Z53.21 Procedure and treatment not carried out due to patient leaving prior to being seen by health care provider ==